=== PATIENT | female | born 1955 | race Caucasian/White ===

== ENCOUNTER 2017-11-28 19:01 | Inpatient (IN) ==
[~2017-11-28 19:01] MED LIST: *HR* Etomidate 20 MG/10 ML AMPUL IVP ONE; *HR* Midazolam HCl 2 MG/2 ML VIAL IV ONE; *HR* Midazolam HCl 5 MG/5 ML VIAL IVP ONE; *HR* Rocuronium Bromide 100 MG/10 ML VIAL IVC ONE
[2017-11-28] MEDS ORDERED: 0.9 % Sodium Chloride 1,000 ML IVC ONE (19:25)
--- NOTE | 2017-11-28 19:27 | Emergency Department Note ---
Overdose - [facility] Narrative Medical decision making narrative: 62-year-old female presenting for drug ingestion. Intubated for obtundation. Unknown if this was accidental or intentional. QTC of 500 treated with magnesium at the recommendations of poison control. Imaging is grossly unremarkable. Labs demonstrate hypokalemia as well as hypocalcemia which was treated here. Case was discussed numerous times with poison control. She has remained hemodynamically stable throughout her ED stay. She is admitted to the intensive care unit under the care of the hospitalist for further management. - Lab Data Lab results reviewed: Yes I reviewed the patient's lab results. Result diagrams: 11/28/17 20:00 11/28/17 20:00 Lab Results 11/28/17 11/28/17 11/28/17 Range/Units 19:43 19:43 19:53 WBC (4.3-11.1) K/mcL RBC (3.82-4.97) M/mcL Hgb (11.5-15.4) g/dL Hct (35.3-44.9) % MCV (83.0-100.0) fL MCH (28.0-33.3) pg MCHC (31.6-35.5) g/dL RDW (11.5-14.5) % Plt Count (140-400) K/mcL MPV (9.4-12.4) fL Immature Gran % (0-4) % Seg Neutrophils % % Lymphocytes % % Monocytes % % Eosinophils % % Basophils % % Neutrophils # (1.6-8.9) K/mcL Lymphocytes # (0.6-4.6) K/mcL Monocytes # (0.0-1.3) K/mcL Eosinophils # (0.0-0.6) K/mcL Basophils # (0.0-0.2) K/mcL PT (9.4-12.1) Seconds INR APTT (26.0-36.0) Seconds Sample Site L Radial ABG pH 7.42 (7.32-7.45) pH Units ABG pCO2 49 H (35-45) mmHg ABG pO2 107 H (85-104) mmHg ABG HCO3 32 H (21-27) mEq/L ABG Total CO2 33 H (20-26) mEq/L ABG O2 Saturation 98 (95-98) % ABG Base Excess 6 H (-2 to 3) mEq/L Betito Test Positive Respiration Rate 14 O2 Delivery Device Adult Vent Blood Gas Modality ASSIST CONTROL Inspired O2 60.0 (1-15=lpm [id number]=%) Tidal Volume 400 cc PEEP 5 cm H2O Sodium (136-145) mEq/L Potassium (3.5-5.1) mEq/L Chloride (98-107) mEq/L Carbon Dioxide (23-29) mEq/L BUN (8-23) mg/dL Creatinine (0.60-1.20) mg/dL Est GFR ( Amer) (> 60) Est GFR (Non-Af Amer) (> 60) BUN/Creatinine Ratio (6-26) Glucose (70-105) mg/dL Calculated Osmolality (280-300) Calcium (8.6-10.3) mg/dL Venous Ioniz Calcium (1.15-1.35) mmol/L Magnesium (1.6-2.6) mg/dL Total Bilirubin (0.3-1.0) mg/dL Direct Bilirubin (0.0-0.2) mg/dL Indirect Bilirubin (0.0-1.2) mg/dL AST (13-39) Units/L ALT (7-52) Units/L Alkaline Phosphatase (34-104) Units/L Ammonia (16-53) mcmol/L Creatine Kinase (30-223) Units/L Troponin I (< 0.04) ng/mL Serum Total Protein (6.4-8.9) g/dL Albumin (3.5-5.7) g/dL Globulin (2.4-3.5) g/dL Albumin/Globulin Ratio (1.1-2.2) TSH (0.340-5.600) mcIU/mL Urine Color Yellow (Yellow) Urine Clarity Clear (Clear) Urine pH 6.5 (5.0-8.0) pH Units Ur Specific [place] 1.007 L (1.010-1.025) Urine Protein Negative (Neg-Trace) mg/dL Urine Glucose (UA) Normal (Normal) mg/dL Urine Ketones Negative (Negative) mg/dL Urine Blood Negative (Negative) Urine Nitrite Negative (Negative) Urine Bilirubin Negative (Negative) Urine Urobilinogen Normal (Normal) mg/dL Ur Leukocyte Esterase Moderate H (Negative) Urine Microscopic RBC 0-3 (0-3) per hpf Urine Microscopic WBC 5-15 H (0-3) per hpf Ur Squamous Epith Cells Moderate H (None-Few) per lpf Urine Bacteria None Seen (None-Few) per hpf Hyaline Casts None Seen (None-Few) per lpf Ur Culture Indicated? YES A (NO) Salicylates (15.0-30.0) mg/dL Urine Opiates Screen Negative (Rsmkpg=655) ng/mL Acetaminophen (10-20) mcg/mL Ur Barbiturates Screen Positive H (Dwkbbq=644) ng/mL Ur Phencyclidine Scrn Negative (Cutoff=25) ng/mL Ur Amphetamines Screen Negative (Mfcmro=4992) ng/mL U Benzodiazepines Scrn Negative (Yaiitq=474) ng/mL Urine Cocaine Screen Negative (Cutoff= 300) ng/mL U Marijuana (THC) Screen Positive H (Cutoff = 50) ng/mL Ur Drug Screen Interp See Below Ethyl Alcohol (Less than 10) mg/dL 11/28/17 11/28/17 11/28/17 Range/Units 20:00 20:00 20:00 WBC 8.0 (4.3-11.1) K/mcL RBC 3.03 L (3.82-4.97) M/mcL Hgb 10.4 L (11.5-15.4) g/dL Hct 30.4 L (35.3-44.9) % MCV 100.3 H (83.0-100.0) fL MCH 34.3 H (28.0-33.3) pg MCHC 34.2 (31.6-35.5) g/dL RDW 13.7 (11.5-14.5) % Plt Count 262 (140-400) K/mcL MPV 10.0 (9.4-12.4) fL Immature Gran % 0.8 (0-4) % Seg Neutrophils % 69.6 % Lymphocytes % 20.5 % Monocytes % 7.9 % Eosinophils % 0.4 % Basophils % 0.8 % Neutrophils # 5.6 (1.6-8.9) K/mcL Lymphocytes # 1.6 (0.6-4.6) K/mcL Monocytes # 0.6 (0.0-1.3) K/mcL Eosinophils # 0.0 (0.0-0.6) K/mcL Basophils # 0.1 (0.0-0.2) K/mcL PT 11.5 (9.4-12.1) Seconds INR 1.0 APTT 23.8 L (26.0-36.0) Seconds Sample Site ABG pH (7.32-7.45) pH Units ABG pCO2 (35-45) mmHg ABG pO2 (85-104) mmHg ABG HCO3 (21-27) mEq/L ABG Total CO2 (20-26) mEq/L ABG O2 Saturation (95-98) % ABG Base Excess (-2 to 3) mEq/L Betito Test Respiration Rate O2 Delivery Device Blood Gas Modality Inspired O2 (1-15=lpm [id number]=%) Tidal Volume cc PEEP cm H2O Sodium 135 L (136-145) mEq/L Potassium 2.3 L* (3.5-5.1) mEq/L Chloride 96 L (98-107) mEq/L Carbon Dioxide 30 H (23-29) mEq/L BUN 15 (8-23) mg/dL Creatinine 1.63 H (0.60-1.20) mg/dL Est GFR ( Amer) 39 L (> 60) Est GFR (Non-Af Amer) 32 L (> 60) BUN/Creatinine Ratio 9 (6-26) Glucose 146 H (70-105) mg/dL Calculated Osmolality 283 (280-300) Calcium 8.3 L (8.6-10.3) mg/dL Venous Ioniz Calcium (1.15-1.35) mmol/L Magnesium 2.0 (1.6-2.6) mg/dL Total Bilirubin 0.4 (0.3-1.0) mg/dL Direct Bilirubin 0.1 (0.0-0.2) mg/dL Indirect Bilirubin 0.3 (0.0-1.2) mg/dL AST 15 (13-39) Units/L ALT 8 (7-52) Units/L Alkaline Phosphatase 151 H (34-104) Units/L Ammonia (16-53) mcmol/L Creatine Kinase 190 (30-223) Units/L Troponin I (< 0.04) ng/mL Serum Total Protein 6.9 (6.4-8.9) g/dL Albumin 4.0 (3.5-5.7) g/dL Globulin 2.9 (2.4-3.5) g/dL Albumin/Globulin Ratio 1.4 (1.1-2.2) TSH (0.340-5.600) mcIU/mL Urine Color (Yellow) Urine Clarity (Clear) Urine pH (5.0-8.0) pH Units Ur Specific [place] (1.010-1.025) Urine Protein (Neg-Trace) mg/dL Urine Glucose (UA) (Normal) mg/dL Urine Ketones (Negative) mg/dL Urine Blood (Negative) Urine Nitrite (Negative) Urine Bilirubin (Negative) Urine Urobilinogen (Normal) mg/dL Ur Leukocyte Esterase (Negative) Urine Microscopic RBC (0-3) per hpf Urine Microscopic WBC (0-3) per hpf Ur Squamous Epith Cells (None-Few) per lpf Urine Bacteria (None-Few) per hpf Hyaline Casts (None-Few) per lpf Ur Culture Indicated? (NO) Salicylates < 2.5 L (15.0-30.0) mg/dL Urine Opiates Screen (Lolljf=174) ng/mL Acetaminophen < 10 L (10-20) mcg/mL Ur Barbiturates Screen (Wnsjbx=527) ng/mL Ur Phencyclidine Scrn (Cutoff=25) ng/mL Ur Amphetamines Screen (Xbcdia=9180) ng/mL U Benzodiazepines Scrn (Vhjkwd=486) ng/mL Urine Cocaine Screen (Cutoff= 300) ng/mL U Marijuana (THC) Screen (Cutoff = 50) ng/mL Ur Drug Screen Interp Ethyl Alcohol < 10 (Less than 10) mg/dL 11/28/17 11/28/17 11/28/17 Range/Units 20:00 20:00 20:18 WBC (4.3-11.1) K/mcL RBC (3.82-4.97) M/mcL Hgb (11.5-15.4) g/dL Hct (35.3-44.9) % MCV (83.0-100.0) fL MCH (28.0-33.3) pg MCHC (31.6-35.5) g/dL RDW (11.5-14.5) % Plt Count (140-400) K/mcL MPV (9.4-12.4) fL Immature Gran % (0-4) % Seg Neutrophils % % Lymphocytes % % Monocytes % % Eosinophils % % Basophils % % Neutrophils # (1.6-8.9) K/mcL Lymphocytes # (0.6-4.6) K/mcL Monocytes # (0.0-1.3) K/mcL Eosinophils # (0.0-0.6) K/mcL Basophils # (0.0-0.2) K/mcL PT (9.4-12.1) Seconds INR APTT (26.0-36.0) Seconds Sample Site ABG pH (7.32-7.45) pH Units ABG pCO2 (35-45) mmHg ABG pO2 (85-104) mmHg ABG HCO3 (21-27) mEq/L ABG Total CO2 (20-26) mEq/L ABG O2 Saturation (95-98) % ABG Base Excess (-2 to 3) mEq/L Betito Test Respiration Rate O2 Delivery Device Blood Gas Modality Inspired O2 (1-15=lpm hf07-420=%) Tidal Volume cc PEEP cm H2O Sodium (136-145) mEq/L Potassium (3.5-5.1) mEq/L Chloride (98-107) mEq/L Carbon Dioxide (23-29) mEq/L BUN (8-23) mg/dL Creatinine (0.60-1.20) mg/dL Est GFR ( Amer) (> 60) Est GFR (Non-Af Amer) (> 60) BUN/Creatinine Ratio (6-26) Glucose (70-105) mg/dL Calculated Osmolality (280-300) Calcium (8.6-10.3) mg/dL Venous Ioniz Calcium 0.93 L (1.15-1.35) mmol/L Magnesium (1.6-2.6) mg/dL Total Bilirubin (0.3-1.0) mg/dL Direct Bilirubin (0.0-0.2) mg/dL Indirect Bilirubin (0.0-1.2) mg/dL AST (13-39) Units/L ALT (7-52) Units/L Alkaline Phosphatase (34-104) Units/L Ammonia 42 (16-53) mcmol/L Creatine Kinase (30-223) Units/L Troponin I < 0.03 (< 0.04) ng/mL Serum Total Protein (6.4-8.9) g/dL Albumin (3.5-5.7) g/dL Globulin (2.4-3.5) g/dL Albumin/Globulin Ratio (1.1-2.2) TSH 41.608 H (0.340-5.600) mcIU/mL Urine Color (Yellow) Urine Clarity (Clear) Urine pH (5.0-8.0) pH Units Ur Specific [place] (1.010-1.025) Urine Protein (Neg-Trace) mg/dL Urine Glucose (UA) (Normal) mg/dL Urine Ketones (Negative) mg/dL Urine Blood (Negative) Urine Nitrite (Negative) Urine Bilirubin (Negative) Urine Urobilinogen (Normal) mg/dL Ur Leukocyte Esterase (Negative) Urine Microscopic RBC (0-3) per hpf Urine Microscopic WBC (0-3) per hpf Ur Squamous Epith Cells (None-Few) per lpf Urine Bacteria (None-Few) per hpf Hyaline Casts (None-Few) per lpf Ur Culture Indicated? (NO) Salicylates (15.0-30.0) mg/dL Urine Opiates Screen (Cqysku=684) ng/mL Acetaminophen (10-20) mcg/mL Ur Barbiturates Screen (Gjczvc=368) ng/mL Ur Phencyclidine Scrn (Cutoff=25) ng/mL Ur Amphetamines Screen (Kcmqmc=2149) ng/mL U Benzodiazepines Scrn (Vplgou=045) ng/mL Urine Cocaine Screen (Cutoff= 300) ng/mL U Marijuana (THC) Screen (Cutoff = 50) ng/mL Ur Drug Screen Interp Ethyl Alcohol (Less than 10) mg/dL - Radiology Data Radiology results reviewed: Yes I reviewed the patient's radiology results. Chest X-Ray 11/28/17 19:25 IMPRESSION: Calcific atherosclerotic disease aorta. No acute disease. Life support appliances appear appropriately positioned. D/ / Elpidio Hector / Elpidio Hector Interpreting Provider: Elpidio Hector Head CT 11/28/17 19:26 IMPRESSION: No acute intracranial abnormality. White matter hypoattenuation described is typical of microvascular ischemic disease or as sequela of dysmyelinating/demyelinating processes. D/ / Elpidio Hector / Elpidio Hector Interpreting Provider: Elpidio Hector - EKG Data EKG attestation: Yes I reviewed and interpreted this EKG. EKG results narrative: EKG demonstrates sinus rhythm rate 83 bpm. Normal axis. Prolonged QTC of 500. Other intervals normal. No gross ST elevations or depressions. No acute ischemic findings. Overdose HPI - General Chief Complaint: ED Overdose Stated Complaint: OD Time Seen by Provider: 11/28/17 19:23 Source: family, EMS Mode of arrival: EMS Limitations: altered mental status Nursing Notes Reviewed: Yes Vital Signs Reviewed: Yes - History of Present Illness HPI Narrative: 62-year-old female underlying history of migraines, seizures who presents to the ER via EMS due to altered mental status and drug ingestion. History is obtained from family. Reports she was last seen normal at noon. We went into see her this evening they believe she got into the wrong medications. Family is missing 14 100 mg strength lamotrigine tablets. No other pills were found. The patient was brought in obtunded. Unable to obtain any history. 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 Pt Subjective Complaint: other Onset (ago): unknown Timing confirmed by: family member Intent: unknown How Overdose Was Discovered: other (Found by family) Treatments Prior to Arrival: none - Related Data Home Medications Medication Instructions Recorded Confirmed Acetaminophen/Butalbital/Caffe 1 each PO Q4HR PRN 10/14/17 10/14/17 [Fioricet] Amitriptyline [Elavil] 25 mg PO HS 10/14/17 10/14/17 Baclofen [Lioresal] 10 mg PO TID 10/14/17 10/14/17 Citalopram [CeleXA] 40 mg PO DAILY 10/14/17 10/14/17 Clopidogrel [Plavix] 75 mg PO DAILY 10/14/17 10/14/17 Cyclobenzaprine [Flexeril] 10 mg PO TID PRN 10/14/17 10/14/17 Desvenlafaxine Succinate 50 mg PO DAILY 10/14/17 10/14/17 [Desvenlafaxine Succinate ER] Folic Acid 1 mg PO DAILY 10/14/17 10/14/17 HYDROcodone/Acet 7.5/325 mg [[place] 1 tab PO TID 10/14/17 10/14/17 7.5-325 mg] Quetiapine Fumarate [Seroquel] 25 - 50 mg PO HS 10/14/17 10/14/17 Quetiapine Fumarate [Seroquel] 25 mg PO AD PRN 10/14/17 10/14/17 Topiramate [Topamax] 100 mg PO BID 10/14/17 10/14/17 hydroCHLOROthiazide 25 mg PO DAILY 10/14/17 10/14/17 [Hydrochlorothiazide] Previous Rx's Medication Instructions Recorded Levothyroxine [Synthroid] 75 mcg PO DAILY@0630 30 Days #30 10/20/17 tablet Allergies Allergy/AdvReac Type Severity Reaction Status Date / Time sertraline [From Zoloft] AdvReac Hives Verified 11/28/17 19:12 Tetracyclines AdvReac Hives Verified 11/28/17 19:12 Limitations: ROS unobtainable due to patients medical condition Past Medical History - Past Medical History Source: old records reviewed, obtained from family Medical history: Reports: fibromyalgia, migraine, seizures, thyroid disease, syncope Surgical history: Reports: non-contributory Psychiatric history: Reports: depression 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 history: Reports: non-contributory - Social History Smoking Status: Former smoker Smokeless Tobacco Status: Yes (vape) Alcohol use: Reports: none Drug use: Reports: none Physical Exam - General Limitations: altered mental status General appearance: lethargic - Head Head exam: atraumatic, normocephalic, normal inspection - Eye Eye exam: Present: normal appearance, PERRL - ENT ENT exam: normal exam, other (Dried emesis to the face) - Neck Neck exam: Present: normal inspection - Chest Chest inspection: Present: normal inspection, symmetric chest wall rise - Respiratory Respiratory exam: Present: normal lung sounds bilaterally - Cardiovascular Cardiovascular exam: Present: regular rate, normal rhythm, normal heart sounds - Abdominal Exam Abdominal exam: Present: soft, Non-Tender. Absent: tenderness, distention, rigidity - Extremities Exam Extremities exam: Present: normal inspection - Expanded Upper Extremity Exam Shoulder exam: Present: normal inspection Arm exam: Present: normal inspection Elbow exam: Present: normal inspection Forearm/Wrist exam: Present: normal inspection Hand exam: Present: normal inspection - Expanded Lower Extremity Exam Hip/Pelvis exam: Present: normal inspection Upper leg exam: Present: normal inspection Knee exam: Present: normal inspection Lower leg exam: Present: normal inspection Ankle exam: Present: normal inspection Foot/toe exam: Present: normal inspection - Neurological Exam Neurological exam: Present: other (Obtunded. Does not follow commands.) - Expanded Neurological Exam Coma Scale Eye Opening: To Voice Coma Scale Motor Response: Withdraws to Pain Coma Scale Verbal Response: None Coma Scale Total: 8 - Skin Skin exam: Present: warm, dry Course Course Narrative: Patient seen and examined at time of arrival. Intubated for airway securement and obtundation. Plan discussed with poison control. They recommended treatment with magnesium given her prolonged QT interval. Plan for CT imaging of her head, labs, urinalysis, admission. - Reevaluation(s) Reevaluation #1: Potassium found to be 2.3. Patient given 40 mEq oral and IV. Calcium was also replaced IV. - Consultations Consultation #1: I spoke with poison control concerning this patient. Discussed her own medications as well as what is believed to been ingested today. They recommend to treat her QTC with 2 g of magnesium. Vital Signs Temperature 97.7 F 11/28/17 19:15 Pulse Rate 76 11/28/17 19:15 Respiratory Rate 16 11/28/17 19:15 Blood Pressure 149/93 11/28/17 19:15 O2 Sat by Pulse Oximetry 98 11/28/17 19:15 Temperature 97.7 F 11/28/17 20:25 Pulse Rate 67 11/28/17 21:57 Respiratory Rate 16 11/28/17 21:37 Blood Pressure 141/91 11/28/17 21:57 O2 Sat by Pulse Oximetry 100 11/28/17 21:57 Oxygen Delivery Oxygen Delivery Ventilator Disposition Clinical Impression: Hypokalemia, Positive urine drug screen, Hypocalcemia Drug overdose Qualifiers: Encounter type: initial encounter Injury intent: undetermined intent Qualified Code(s): T50.904A - Poisoning by unspecified drugs, medicaments and biological substances, undetermined, initial encounter Altered mental status Qualifiers: Altered mental status type: unspecified Qualified Code(s): R41.82 - Altered mental status, unspecified Disposition: Admitted As Inpatient Condition: Fair Referrals: William De Leon DO [Primary Care Provider] - Forms: ED Satisfaction Letter S.B.A.R. - S.B.A.R. Situation: Demographics, MOA Background: Presenting Complaint, Relevant PMH, Meds, & Allergies Assessment: Course and respsone to treatment, Exam Concerns, Patient/Family Expectation, Pertinant Lab Results Recommendation: Barrier(s) to disposition, Recommendation based on pending studies, treatments, or consults S.B.A.R. Report Given to: Hospitalist
[2017-11-28] MEDS ORDERED: *HR* Rocuronium Bromide 50 MG/5 ML VIAL IVP ONE (19:35)
[2017-11-28] MEDS ORDERED: *HR* Etomidate 20 MG/10 ML AMPUL IVP ONE (19:35)
--- NOTE | 2017-11-28 19:51 | Emergency Department Note ---
Disposition Clinical Impression: Drug overdose Qualifiers: Encounter type: initial encounter Injury intent: undetermined intent Qualified Code(s): T50.904A - Poisoning by unspecified drugs, medicaments and biological substances, undetermined, initial encounter Disposition: Admitted As Inpatient Condition: Critical General Adult HPI - General Chief complaint: ED Overdose Stated complaint: OD Time Seen by Provider: 11/28/17 19:23 Source: family, EMS Limitations: altered mental status - History of Present Illness HPI Narrative: Please see resident history of present illness, physical exam and assessment and plan. This is simply an event note for procedure. Pain Scale: 0 - Related Data Home Medications Medication Instructions Recorded Confirmed RX: Acetaminophen/Butalbital/Caffe 1 each PO Q4HR PRN 10/14/17 10/14/17 [Fioricet] RX: Amitriptyline [Elavil] 25 mg PO HS 10/14/17 10/14/17 RX: Baclofen [Lioresal] 10 mg PO TID 10/14/17 10/14/17 RX: Citalopram [CeleXA] 40 mg PO DAILY 10/14/17 10/14/17 RX: Clopidogrel [Plavix] 75 mg PO DAILY 10/14/17 10/14/17 RX: Cyclobenzaprine [Flexeril] 10 mg PO TID PRN 10/14/17 10/14/17 RX: Desvenlafaxine Succinate 50 mg PO DAILY 10/14/17 10/14/17 [Desvenlafaxine Succinate ER] RX: Folic Acid 1 mg PO DAILY 10/14/17 10/14/17 RX: HYDROcodone/Acet 7.5/325 mg 1 tab PO TID 10/14/17 10/14/17 [[place] 7.5-325 mg] RX: Quetiapine Fumarate [Seroquel] 25 - 50 mg PO HS 10/14/17 10/14/17 RX: Quetiapine Fumarate [Seroquel] 25 mg PO AD PRN 10/14/17 10/14/17 RX: Topiramate [Topamax] 100 mg PO BID 10/14/17 10/14/17 RX: hydroCHLOROthiazide 25 mg PO DAILY 10/14/17 10/14/17 [Hydrochlorothiazide] Previous Rx's Medication Instructions Recorded RX: Levothyroxine [Synthroid] 75 mcg PO DAILY@0630 30 Days #30 10/20/17 tablet Allergies Allergy/AdvReac Type Severity Reaction Status Date / Time sertraline [From Zoloft] AdvReac Hives Verified 11/28/17 19:12 Tetracyclines AdvReac Hives Verified 11/28/17 19:12 Past Medical History - Past Medical History Medical history: Reports: fibromyalgia, migraine, seizures, thyroid disease, syncope Surgical history: Reports: non-contributory Psychiatric history: Reports: depression [employer] history: Reports: non-contributory - Social History Smoking Status: Former smoker Smokeless Tobacco Status: Yes (vape) Alcohol use: Reports: none Drug use: Reports: none Physical Exam - General Limitations: altered mental status General appearance: lethargic Course Vital Signs Temperature 97.7 F 11/28/17 19:15 Pulse Rate 76 11/28/17 19:15 Respiratory Rate 16 11/28/17 19:15 Blood Pressure 149/93 11/28/17 19:15 O2 Sat by Pulse Oximetry 98 11/28/17 19:15 Temperature 97.7 F 11/28/17 19:15 Pulse Rate 79 11/28/17 19:47 Respiratory Rate 16 11/28/17 19:15 Blood Pressure 149/89 11/28/17 19:47 O2 Sat by Pulse Oximetry 100 11/28/17 19:47 Oxygen Delivery Oxygen Delivery Ventilator Procedures - Intubation Time out performed: Yes sedative: Etomidate Mg Given: 20 paralytic: Rocuronium Mg Given: 100 Laryngoscope: Tomas Assist Device Used: fiber optic device ET Tube Size: Oral ET Tube Uncuffed: Yes Tube Secured Depth (cm): 24 Tube Secured Location: lips Tube Placement Confirmation: visualized tube passing through cords, equal breath sounds bilaterally, no breath sounds over epigastrium, confirmation by capnometry Patient Tolerated Procedure: well, no complications Intubation Complications: none
[2017-11-28 19:59] LABS: ABG Base Excess 6 mEq/L (-2 to 3); ABG HCO3 32 mEq/L (21-27); ABG Oxygen Saturation 98 % (95-98); ABG PCO2 49 mmHg (35-45); ABG PH 7.42 pH Units (7.32-7.45); ABG PO2 107 mmHg (85-104); ABG TCO2 33 mEq/L (20-26); Blood Gas Modality ASSIST CONTROL; Blood Gas PEEP 5 cm H2O; Blood Gas Respiration Rate 14; Blood Gas VT 400 cc
[2017-11-28] MEDS ORDERED: 0.9 % Sodium Chloride 1,000 ML IVC SCH (20:00)
--- NOTE | 2017-11-28 20:02 | Emergency Department Note ---
Disposition Clinical Impression: Drug overdose Qualifiers: Encounter type: initial encounter Injury intent: undetermined intent Qualified Code(s): T50.904A - Poisoning by unspecified drugs, medicaments and biological substances, undetermined, initial encounter Disposition: Admitted As Inpatient Referrals: William De Leon DO [Primary Care Provider] - General Adult HPI - General Chief complaint: ED Overdose Stated complaint: OD Time Seen by Provider: 11/28/17 19:23 Source: family, EMS Mode of arrival: EMS Limitations: altered mental status - History of Present Illness Pain Scale: 0 - Related Data Home Medications Medication Instructions Recorded Confirmed Acetaminophen/Butalbital/Caffe 1 each PO Q4HR PRN 10/14/17 10/14/17 [Fioricet] Amitriptyline [Elavil] 25 mg PO HS 10/14/17 10/14/17 Baclofen [Lioresal] 10 mg PO TID 10/14/17 10/14/17 Citalopram [CeleXA] 40 mg PO DAILY 10/14/17 10/14/17 Clopidogrel [Plavix] 75 mg PO DAILY 10/14/17 10/14/17 Cyclobenzaprine [Flexeril] 10 mg PO TID PRN 10/14/17 10/14/17 Desvenlafaxine Succinate 50 mg PO DAILY 10/14/17 10/14/17 [Desvenlafaxine Succinate ER] Folic Acid 1 mg PO DAILY 10/14/17 10/14/17 HYDROcodone/Acet 7.5/325 mg [[place] 1 tab PO TID 10/14/17 10/14/17 7.5-325 mg] Quetiapine Fumarate [Seroquel] 25 - 50 mg PO HS 10/14/17 10/14/17 Quetiapine Fumarate [Seroquel] 25 mg PO AD PRN 10/14/17 10/14/17 Topiramate [Topamax] 100 mg PO BID 10/14/17 10/14/17 hydroCHLOROthiazide 25 mg PO DAILY 10/14/17 10/14/17 [Hydrochlorothiazide] Previous Rx's Medication Instructions Recorded Levothyroxine [Synthroid] 75 mcg PO DAILY@0630 30 Days #30 10/20/17 tablet Allergies Allergy/AdvReac Type Severity Reaction Status Date / Time sertraline [From Zoloft] AdvReac Hives Verified 11/28/17 19:12 Tetracyclines AdvReac Hives Verified 11/28/17 19:12 Past Medical History - Past Medical History Medical history: Reports: fibromyalgia, migraine, seizures, thyroid disease, syncope Surgical history: Reports: non-contributory Psychiatric history: Reports: depression [employer] history: Reports: non-contributory - Social History Smoking Status: Former smoker Smokeless Tobacco Status: Yes (vape) Alcohol use: Reports: none Drug use: Reports: none Physical Exam - General Limitations: altered mental status General appearance: lethargic Course Vital Signs Temperature 97.7 F 11/28/17 19:15 Pulse Rate 76 11/28/17 19:15 Respiratory Rate 16 11/28/17 19:15 Blood Pressure 149/93 11/28/17 19:15 O2 Sat by Pulse Oximetry 98 11/28/17 19:15 Temperature 97.7 F 11/28/17 19:15 Pulse Rate 79 11/28/17 19:47 Respiratory Rate 16 11/28/17 19:15 Blood Pressure 149/89 11/28/17 19:47 O2 Sat by Pulse Oximetry 100 11/28/17 19:47 Oxygen Delivery Oxygen Delivery Ventilator Attestation Statement - Attestation Attestation: I examined this patient and my medical decision-making was reviewed with the Resident Physician. I agree with the documented findings, disposition and treatment plan as described except to the extent set forth below. 62 year old female arrives via EMs from her home per her daughter for potentional oversdose with lamigital 14-100mg pills. 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 Secondary to airway protection and a GCS < 8 we will intubate and have consulted with posioin control as she hasa QTc of 500 and they have reocmmended 2gram of magneium. PAtient will be admitted to ICU. Las tknown well was 1200 (noon)
[2017-11-28 20:07] LABS: Bilirubin,Urine Negative (Negative); Blood,Urine Negative (Negative); Clarity,Urine Clear (Clear); Color,Urine Yellow (Yellow); Glucose,Urine (UA) Normal (Normal); Ketones,Urine Negative (Negative); Leukocyte Esterase,Urine Moderate (Negative); Nitrite,Urine Negative (Negative); PH,Urine 6.5 pH Units (5.0-8.0); Protein,Urine Negative (Neg-Trace); Specific Gravity,Urine 1.007 (1.010-1.025); Urobilinogen,Urine Normal (Normal)
[2017-11-28 20:09] LABS: Bacteria,Urine None Seen per hpf (None-Few); Hyaline Casts,Urine None Seen per lpf (None-Few); RBC,Urine 0-3 per hpf (0-3); Squamous Epithelial Cell,Urine Moderate per lpf (None-Few)
[2017-11-28 20:15] LABS: Basophils # 0.1 K/mcL (0.0-0.2); Basophils % 0.8 %; Eosinophils % 0.4 %; Hematocrit 30.4 % (35.3-44.9); Hemoglobin 10.4 g/dL (11.5-15.4); Immature Granulocytes % 0.8 % (0-4); Lymphocytes # 1.6 K/mcL (0.6-4.6); Lymphocytes % 20.5 %; Mean Corpuscular HGB Conc 34.2 g/dL (31.6-35.5); Mean Corpuscular Hemoglobin 34.3 pg (28.0-33.3); Mean Corpuscular Volume 100.3 fL (83.0-100.0); Monocytes # 0.6 K/mcL (0.0-1.3); Monocytes % 7.9 %; Neutrophils # 5.6 K/mcL (1.6-8.9); Platelet Count 262 K/mcL (140-400); Red Blood Count 3.03 M/mcL (3.82-4.97); Red Cell Distribution Width 13.7 % (11.5-14.5); Segmented Neutrophils % 69.6 %
[2017-11-28] MEDS ORDERED: *HR* Midazolam HCl 2 MG/2 ML VIAL IVP ONE ×2 (20:17→21:22)
[2017-11-28 20:21] LABS: VBG Ionized Calcium 0.93 mmol/L (1.15-1.35)
[2017-11-28 20:23] LABS: Prothrombin Time 11.5 Seconds (9.4-12.1)
[2017-11-28 20:24] LABS: Amphetamine Screen,Urine Negative ng/mL (Cutoff=1000); Barbiturate Screen,Urine Positive ng/mL (Cutoff=200); Benzodiazepines Screen,Urine Negative ng/mL (Cutoff=200); Cannabinoid Screen,Urine Positive ng/mL (Cutoff = 50); Cocaine Screen,Urine Negative ng/mL (Cutoff= 300); Opiate Screen,Urine Negative ng/mL (Cutoff=300); Phencyclidine Screen,Urine Negative ng/mL (Cutoff=25)
[2017-11-28 20:25] LABS: Activated Partial Thrombo Time 23.8 Seconds (26.0-36.0)
[2017-11-28 20:36] LABS: Acetaminophen < 10 mcg/mL (10-20); Alanine Aminotransferase 8 Units/L (7-52); Albumin/Globulin Ratio 1.4 (1.1-2.2); Alkaline Phosphatase 151 Units/L (34-104); Aspartate Amino Transferase 15 Units/L (13-39); BUN/Creatinine Ratio 9 (6-26); Bilirubin,Direct 0.1 mg/dL (0.0-0.2); Bilirubin,Indirect 0.3 mg/dL (0.0-1.2); Bilirubin,Total 0.4 mg/dL (0.3-1.0); Blood Urea Nitrogen 15 mg/dL (8-23); Calcium 8.3 mg/dL (8.6-10.3); Carbon Dioxide 30 mEq/L (23-29); Chloride 96 mEq/L (98-107); Creatine Kinase 190 Units/L (30-223); Ethanol < 10 mg/dL (Less than 10); Globulin 2.9 g/dL (2.4-3.5); Glucose 146 mg/dL (70-105); Osmolality,Calculated 283 (280-300); Potassium 2.3 mEq/L (3.5-5.1); Salicylate < 2.5 mg/dL (15.0-30.0); Sodium 135 mEq/L (136-145); Total Protein 6.9 g/dL (6.4-8.9); eGFR For Non-African Americans 32 (> 60)
[2017-11-28] MEDS ORDERED: Potassium Chloride 40 MEQ, Lidocaine 1% 2 ML in D5% in Water 500 ML IVPB ONE (20:36)
[2017-11-28 20:41] LABS: Troponin I < 0.03 ng/mL (< 0.04)
[2017-11-28 20:54] LABS: Thyroid Stimulating Hormone 41.608 mcIU/mL (0.340-5.600)
[2017-11-28] MEDS ORDERED: Naloxone 0.4 MG/ML INJ IVP PRN (22:23)
[2017-11-28] MEDS ORDERED: Artificial Tears SOLN 15 ML BOTTLE BOTH EYES PRN (22:25)
[2017-11-28] MEDS ORDERED: Potassium Chloride 40 MEQ/200 ML BAG IVPB PRN (22:37)
--- NOTE | 2017-11-28 22:54 | Internal Med History&Physical ---
<Pan May - Last Filed: 11/28/17 22:49> Date of Encounter: 11/28/17 Time of Encounter: 22:49 Internal Medicine - H&P: HPI Chief complaint: Altered mental status Admitted From: Home Plans for Post Hospital Care: Home History of present illness: Ms. Hitchcock is a 62 year old female presented via EMS after she was found to be unconscious by her [id number]. Family was called via phone to obtain history of present illness. [id number] stated that she was about to take her Lamictal medication at 5 PM when she noticed her prescription bottle was empty. Patient took 14 tablets of 100 mg strength lamotrigine. She then went to find her [id number] who was seen to be unconscious and vomiting. Daughter -in-law called 911 and patient was brought to [facility] emergency room. Daughter reports patient has history of global amnesia which she reports patient will have mutism, and difficulty functioning and which is likely why she took the pills. Daughter also reports patient was let go by her PCP recently and also was cut off from her diazepam. Daughter reports she does not believe patient was suicidal. Also patient's other prescription medications were checked by family and therefore nothing else is missing. Patient was emergently intubated patient. During intubation there is vomiting noted in the trachea. Patient's QTC of 500 and was treated with magnesium which was recommended by poison control. Patient was also hypokalemic hypocalcemic which were replaced by emergency department. Past Med Surg Social Fam HX - Past Medical History Medical history: fibromyalgia, migraine, seizures, thyroid disease, syncope Additional medical history: POTS, Psychiatric history: depression - Past Surgical History Surgical History: non-contributory Additional surgical history: right wrist - Social History Smoking Status: Former smoker Smokeless Tobacco Status: Yes (vape) Alcohol use: none Drug use: none Internal Medicine - H&P: Meds Acetaminophen/Butalbital/Caffe [Fioricet] 1 each PO Q4HR PRN 10/14/17 [History] Amitriptyline [Elavil] 25 mg PO HS 10/14/17 [History] Baclofen [Lioresal] 10 mg PO TID 10/14/17 [History] Citalopram [CeleXA] 40 mg PO DAILY 10/14/17 [History] Clopidogrel [Plavix] 75 mg PO DAILY 10/14/17 [History] Cyclobenzaprine [Flexeril] 10 mg PO TID PRN 10/14/17 [History] Desvenlafaxine Succinate [Desvenlafaxine Succinate ER] 50 mg PO DAILY 10/14/17 [ History] Folic Acid 1 mg PO DAILY 10/14/17 [History] HYDROcodone/Acet 7.5/325 mg [Rowe 7.5-325 mg] 1 tab PO TID 10/14/17 [History] Quetiapine Fumarate [Seroquel] 25 - 50 mg PO HS 10/14/17 [History] Quetiapine Fumarate [Seroquel] 25 mg PO AD PRN 10/14/17 [History] Topiramate [Topamax] 100 mg PO BID 10/14/17 [History] hydroCHLOROthiazide [Hydrochlorothiazide] 25 mg PO DAILY 10/14/17 [History] Levothyroxine [Synthroid] 75 mcg PO DAILY@0630 30 Days #30 tablet 10/20/17 [Rx] 3 Allergy/AdvReac Type Severity Reaction Status Date / Time sertraline [From Zoloft] AdvReac Hives Verified 11/28/17 19:12 Tetracyclines AdvReac Hives Verified 11/28/17 19:12 ROS unobtainable: due to endotracheal tube, due to mental status All Systems PM: A 10-system review of systems was performed and is negative for pertinent findings except as documented above in the HPI. - Constitutional Vitals: Temp Pulse Resp BP Pulse Ox 97.7 F 69 16 129/80 10 11/28/17 20:25 11/28/17 22:18 11/28/17 21:37 11/28/17 22:18 11/28/17 22:18 Exam: General: Intubated, sedated HEENT: Head atraumatic, normocephalic, absent neck mass, absent lymphadenopathy , Heart: Regular rate and rhythm with no murmur Lungs: Coarse breath sounds bilaterally Abdomen: Soft nontender, nondistended positive bowel sounds Skin: warm and dry, absent rash Extremities: 1+ pedal edema bilaterally Neuro: Intubated sedated Vascular: Pedal and radial pulses 2 out of 4 Internal Med - H&P Results - Labs CBC & Chem 7: 11/28/17 20:00 11/28/17 20:00 Labs: Short CBC 11/28/17 Range/Units 20:00 WBC 8.0 (4.3-11.1) K/mcL Hgb 10.4 L (11.5-15.4) g/dL Hct 30.4 L (35.3-44.9) % Plt Count 262 (140-400) K/mcL Neutrophils # 5.6 (1.6-8.9) K/mcL BMP 11/28/17 20:00 Sodium 135 L Potassium 2.3 L* Chloride 96 L Carbon Dioxide 30 H BUN 15 Creatinine 1.63 H Glucose 146 H Calcium 8.3 L Cardiac Enzymes 11/28/17 Range/Units 20:00 Troponin I < 0.03 (< 0.04) ng/mL Liver Function 11/28/17 Range/Units 20:00 Total Bilirubin 0.4 (0.3-1.0) mg/dL Direct Bilirubin 0.1 (0.0-0.2) mg/dL AST 15 (13-39) Units/L ALT 8 (7-52) Units/L Alkaline Phosphatase 151 H (34-104) Units/L Albumin 4.0 (3.5-5.7) g/dL Urine 11/28/17 Range/Units 19:43 Urine Color Yellow (Yellow) Urine Clarity Clear (Clear) Urine pH 6.5 (5.0-8.0) pH Units Ur Specific [place] 1.007 L (1.010-1.025) Urine Protein Negative (Neg-Trace) mg/dL Urine Glucose (UA) Normal (Normal) mg/dL - ABG Interpretation ABG results: 11/28/17 19:53 ABG pH 7.42 ABG pCO2 49 H ABG pO2 107 H ABG HCO3 32 H ABG Total CO2 33 H ABG O2 Saturation 98 ABG Base Excess 6 H - Impressions ITS Impressions Chest X-Ray 11/28/17 19:25 IMPRESSION: Calcific atherosclerotic disease aorta. No acute disease. Life support appliances appear appropriately positioned. D/ / Elpidio Hector / Elpidio Hector Interpreting Provider: Elpidio Hector Head CT 11/28/17 19:26 IMPRESSION: No acute intracranial abnormality. White matter hypoattenuation described is typical of microvascular ischemic disease or as sequela of dysmyelinating/demyelinating processes. D/ / Elpidio Hector / Elpidio Hector Interpreting Provider: Elpidio Hector - Assessment and plan (1) Drug overdose Current Visit: Yes Status: Acute Assessment and plan: 62-year-old female was found unconscious by her daughter in law and taken 14 pills of 100 mg lamotrigine. Patient presented unconscious, and was vomiting. Patient's QT was noted to be 500 otherwise EKG was sinus rhythm with no ST-T wave changes. Patient was given magnesium as per poison control. EGD also gave patient calcium gluconate. Plan: We will repeat EKG every 2 hours, check CPK, ABG. Cardiac telemetry. Qualifiers: Encounter type: initial encounter Injury intent: undetermined intent Qualified Code(s): T50.904A - Poisoning by unspecified drugs, medicaments and biological substances, undetermined, initial encounter (2) Hypokalemia Current Visit: Yes Status: Acute Assessment and plan: Patient presented with a potassium of 2.3 Patient has been given 80 mEq Recheck potassium. Patient on electrolyte protocol. (3) Elevated TSH Current Visit: Yes Status: Acute Assessment and plan: Patient has a history of hypothyroidism TSH is 41 She takes 75 g of levothyroxine We will start patient on 112 mg of thyroxine. Follow-up with PCP for further management (4) Hypocalcemia Current Visit: Yes Status: Acute Assessment and plan: Patient sinus calcium was 0.93 Patient is on electrolyte protocol. (5) QT prolongation Current Visit: Yes Status: Acute Assessment and plan: Secondary to Lamictal overdose Hold home medications Plan as above. - Time Spent With Patient Total time spent is greater than 50% in coordination of care (as documented) at patient's floor/unit and/or counseling patient: <Jo Ann Sanchez - Last Filed: 11/28/17 23:09> Date of Encounter: 11/28/17 Internal Medicine - H&P: HPI History of present illness: Ms. Hitchcock is a 62 year old female All Systems PM: A 10-system review of systems was performed and is negative for pertinent findings except as documented above in the HPI. - Constitutional Vitals: Temp Pulse Resp BP Pulse Ox 97.7 F 69 16 129/80 10 11/28/17 20:25 11/28/17 22:18 11/28/17 21:37 11/28/17 22:18 11/28/17 22:18 Internal Med - H&P Results - Labs CBC & Chem 7: 11/28/17 20:00 11/28/17 20:00 Labs: Short CBC 11/28/17 Range/Units 20:00 WBC 8.0 (4.3-11.1) K/mcL Hgb 10.4 L (11.5-15.4) g/dL Hct 30.4 L (35.3-44.9) % Plt Count 262 (140-400) K/mcL Neutrophils # 5.6 (1.6-8.9) K/mcL BMP 11/28/17 20:00 Sodium 135 L Potassium 2.3 L* Chloride 96 L Carbon Dioxide 30 H BUN 15 Creatinine 1.63 H Glucose 146 H Calcium 8.3 L Cardiac Enzymes 11/28/17 Range/Units 20:00 Troponin I < 0.03 (< 0.04) ng/mL Liver Function 11/28/17 Range/Units 20:00 Total Bilirubin 0.4 (0.3-1.0) mg/dL Direct Bilirubin 0.1 (0.0-0.2) mg/dL AST 15 (13-39) Units/L ALT 8 (7-52) Units/L Alkaline Phosphatase 151 H (34-104) Units/L Albumin 4.0 (3.5-5.7) g/dL Urine 11/28/17 Range/Units 19:43 Urine Color Yellow (Yellow) Urine Clarity Clear (Clear) Urine pH 6.5 (5.0-8.0) pH Units Ur Specific [place] 1.007 L (1.010-1.025) Urine Protein Negative (Neg-Trace) mg/dL Urine Glucose (UA) Normal (Normal) mg/dL - ABG Interpretation ABG results: 11/28/17 19:53 ABG pH 7.42 ABG pCO2 49 H ABG pO2 107 H ABG HCO3 32 H ABG Total CO2 33 H ABG O2 Saturation 98 ABG Base Excess 6 H - Impressions ITS Impressions Chest X-Ray 11/28/17 19:25 IMPRESSION: Calcific atherosclerotic disease aorta. No acute disease. Life support appliances appear appropriately positioned. D/ / Elpidio Hector / Elpidio Hector Interpreting Provider: Elpidio Hector Head CT 11/28/17 19:26 IMPRESSION: No acute intracranial abnormality. White matter hypoattenuation described is typical of microvascular ischemic disease or as sequela of dysmyelinating/demyelinating processes. D/ / Elpidio Hector / Elpidio Hector Interpreting Provider: Elpidio Hector - Assessment and plan (1) Hypokalemia Current Visit: Yes Status: Acute (2) Elevated TSH Current Visit: Yes Status: Acute (3) Drug overdose Current Visit: Yes Status: Acute Qualifiers: Encounter type: initial encounter Injury intent: undetermined intent Qualified Code(s): T50.904A - Poisoning by unspecified drugs, medicaments and biological substances, undetermined, initial encounter (4) Hypocalcemia Current Visit: Yes Status: Acute (5) QT prolongation Current Visit: Yes Status: Acute - Time Spent With Patient Total time spent is greater than 50% in coordination of care (as documented) at patient's floor/unit and/or counseling patient: - Attending Attestation Mariama Hitchcock is a 62 year old woman with a history of hypothyroidism, seizure disorder, depression, fibromyalgia and global amnesia per family characterized by moments of mutism and forgetfulness brought in due to AMS after drug intoxication. As per family it is believed she got into the wrong medications while she was left alone and noted that 14 1000mg lamotrigine tablets from someone elses pill bottle were missing. She was noted vomiting profusely. She was obtunded on arrival here intubated on arrival to the ER for airway protection due to profuse vomiting. Poison control was contacted with the recommendation of supplementing magnesium given the prolonged QTc. At this time the patient is hemodynamically stable. Physical exam is remarkable for elderly woman sedated to RASS-2, adequate air entry into both lung [place] with some rhonchi, soft abdomen, no significant peripheral edema. Will treat acute intoxication/poisoning by antiepileptic agent and severe hypokalemia. IVF resuscitation. Supplement K as needed. Maintain Mg >2. Ensure pH stays around 7.4 and will use NaHCO3 if necessary. HOB elevation. Stress ulcer prophylaxis. Oral care. Check CPK. Continuous telemetry. EKG q2-4hrs. Increase levothyroxine dose for severe metabolically hypothyroid state. OG tube to suction. DVT prophylais with heparin subq. Propofol for sedation and daily weaning trial.
[2017-11-29] MEDS ORDERED: Piperacillin/Tazobactam 3.375 GM in 0.9 % Sodium Chloride Mini Bag 100 ML IVPB SCH
[2017-11-29] MEDS ORDERED: *HR* Heparin 5,000 UNIT/ML VIAL SQ SCH
[2017-11-29] MEDS: Artificial Tears SOLN 15 ML BOTTLE BOTH EYES SCH ×7 (00:42→23:46)
[2017-11-29] MEDS ORDERED: *HR* Midazolam HCl 2 MG/2 ML VIAL IVP ONE ×2 (01:12)
[2017-11-29] MEDS ORDERED: FentaNYL (PF) 1,000 MCG in 0.9 % Sodium Chloride 80 ML IVC SCH (01:15)
[2017-11-29 01:28] LABS: ABG Base Excess 5 mEq/L (-2 to 3); ABG HCO3 30 mEq/L (21-27); ABG Oxygen Saturation 95 % (95-98); ABG PCO2 45 mmHg (35-45); ABG PH 7.43 pH Units (7.32-7.45); ABG PO2 72 mmHg (85-104); ABG TCO2 31 mEq/L (20-26); Blood Gas Modality ASSIST CONTROL; Blood Gas PEEP 5 cm H2O; Blood Gas Respiration Rate 14; Blood Gas VT 400 cc
[2017-11-29 01:53] LABS: Basophils # 0.1 K/mcL (0.0-0.2); Basophils % 0.4 %; Eosinophils % 0.1 %; Hematocrit 28.2 % (35.3-44.9); Hemoglobin 9.6 g/dL (11.5-15.4); Immature Granulocytes % 0.5 % (0-4); Lymphocytes # 1.5 K/mcL (0.6-4.6); Lymphocytes % 11.1 %; Mean Corpuscular Hemoglobin 33.8 pg (28.0-33.3); Mean Corpuscular Volume 99.3 fL (83.0-100.0); Mean Platelet Volume 10.1 fL (9.4-12.4); Monocytes % 7.4 %; Neutrophils # 11.2 K/mcL (1.6-8.9); Platelet Count 260 K/mcL (140-400); Red Blood Count 2.84 M/mcL (3.82-4.97); Red Cell Distribution Width 13.7 % (11.5-14.5); Segmented Neutrophils % 80.5 %
[2017-11-29 02:09] LABS: Albumin 3.8 g/dL (3.5-5.7); Albumin/Globulin Ratio 1.4 (1.1-2.2); Bilirubin,Indirect 0.4 mg/dL (0.0-1.2); Bilirubin,Total 0.4 mg/dL (0.3-1.0); Calcium 8.6 mg/dL (8.6-10.3); Globulin 2.7 g/dL (2.4-3.5); Magnesium 2.6 mg/dL (1.6-2.6); Phosphorous 2.2 mg/dL (2.7-4.5); Potassium 2.8 mEq/L (3.5-5.1); Total Protein 6.5 g/dL (6.4-8.9)
[2017-11-29] MEDS: Potassium Chloride Elixir 20 MEQ/15 ML UDC PO PRN ×2 (04:55→07:58)
[2017-11-29 05:40] LABS: Calcium 8.7 mg/dL (8.6-10.3); Potassium 2.6 mEq/L (3.5-5.1)
[2017-11-29] MEDS: Famotidine 20 MG/2 ML VIAL IVP SCH ×2 (05:44→17:15)
[2017-11-29] MEDS: Docusate Oral Soln 100 MG/10 ML UDC GTUBE SCH ×2 (07:58→20:20)
[2017-11-29] MEDS: Chlorhexidine Rinse 15 ML MOUTHWASH MM SCH ×2 (07:59→20:19)
[2017-11-29] MEDS: *HR* Heparin 5,000 UNIT/ML VIAL SQ SCH ×3 (08:03→23:46)
--- NOTE | 2017-11-29 08:35 | Pulmonology Consult Note ---
<Petrona Salvador - Last Filed: 11/29/17 11:20> Date of Encounter: 11/29/17 Time of Encounter: 08:35 Assessment and Plan (1) Altered mental status Current Visit: Yes Status: Acute Pt presented to the ED obtunded and was intubated for inability to protect airway and maintain saturation. She was extubated 11/29/17 AM and is mentating appropriately, A&O x 3 - self, place, time. There is either some confusion as to the events that led to her admission or purposeful falsification. Qualifiers: Altered mental status type: unspecified Qualified Code(s): R41.82 - Altered mental status, unspecified (2) Drug overdose Current Visit: Yes Status: Acute Pt reportedly took 1400mg Lamictal either because she was confused or because she did not have any of her own medication. She was found to have QTC of 500 and was given Mg in the ED. EKG was repeated and QTC was found to be 432. Recommend Psych consult to assess. Qualifiers: Encounter type: initial encounter Injury intent: undetermined intent Qualified Code(s): T50.904A - Poisoning by unspecified drugs, medicaments and biological substances, undetermined, initial encounter (3) Elevated TSH Current Visit: Yes Status: Acute Pt had TSH of 41.608 and Free T4 <0.25ng/dl on 10/14/17. Recommend Free T4 level and outpatient management for optimizing of synthroid therapy. (4) Hypocalcemia Current Visit: Yes Status: Acute Ca2+ was found to be 8.3 on admission, which is mild hypocalcemia, but is now WNL. (5) Hypokalemia Current Visit: Yes Status: Acute Pt was found to be hypokalemic on admission at 2.3 and was started on potassium repletion. Potassium continues to improve. Continue to monitor. (6) Positive urine drug screen Current Visit: Yes Status: Acute UDS positive for barbiturates and THC. Pt has a hx of abuse. Continue to monitor. (7) QT prolongation Current Visit: Yes Status: Acute QT was elevated in ED on presentation, QT on EKG at 1144 on 11/29/17 was 411. (8) Aspiration pneumonia Current Visit: Yes Status: Suspected Due to OD and pt being found down with emesis around her mouth as well as continued emesis during transport to the hospital, there is concern for potential development of aspiration PNA. Pt is currently being covered with Unasyn 1500mg Q6. She is normothermic, with clear breath sounds bilaterally, without difficulty breathing. There is some opacification on 11/29/17 0308 CXR in the area of the right hilum. Continue coverage with unasyn and monitor CXR. Qualifiers: Aspiration pneumonia type: due to vomit Laterality: unspecified laterality Lung location: unspecified part of lung Qualified Code(s): J69.0 - Pneumonitis due to inhalation of food and vomit (9) CKD (chronic kidney disease) Current Visit: No Status: Acute Cr at admission was 1.63 which is trending down to her baseline. Her average creatinine is between 1.29-1.95 based upon labs dating back to 2013. Continue to monitor, renally dose medications, and gentle hydration as necessary. Qualifiers: Chronic kidney disease stage: stage 3 (moderate) Qualified Code(s): N18.3 - Chronic kidney disease, stage 3 (moderate) (10) DVT prophylaxis Current Visit: No Status: Acute Heparin 5k units Q8 (11) H/O syncope Current Visit: No Status: Acute Fall prevention, up with assist (12) Polysubstance abuse Current Visit: No Status: Acute Psych eval (13) Syncope Current Visit: No Status: Acute Up with assist, fall precautions Qualifiers: Syncope type: unspecified Qualified Code(s): R55 - Syncope and collapse (14) Weakness Current Visit: No Status: Acute Up with assist, fall precautions (15) Seizure Current Visit: No Status: Suspected Restart home medications - Topamax History of Present Illness Consult date: 11/29/17 Requesting physician: Pan May Reason for consult: other (pt intubated s/p respiratory failure d/t OD) Chief complaint: respiratory failure History of present illness: Pt presented to ED and was emergently intubated for obtundation. Pt reportedly ingested 1400mg of Lamictal because she was out of her own benzodiazepine prescription. Unknown whether intentional or not. QTC of 500 was treated with magnesium at the recommendation of poison control. Imaging was grossly unremarkable. Labs demonstrated hypokalemia and hypocalcemia which were treated in the ED. Pt remained hemodynamically stable throughout her stay. Respiratory began planning for extubation on the morning of 11/29/17 and found NIF -20.5 and RSBI of 33 with cuff leak present. She was extubated and continues to maintain saturation. Her only present complaint is ankle pain associated with a fracture under management by a doctor at [facility]. She has no other complaints. Past Med Surg Social Fam HX - Past Medical History Medical history: fibromyalgia, migraine, seizures, thyroid disease, syncope Additional medical history: POTS, Psychiatric history: depression - Past Surgical History Surgical History: non-contributory Additional surgical history: right wrist - Social History Smoking Status: Former smoker Smokeless Tobacco Status: Yes (vape) Alcohol use: none Drug use: none Medications and Allergies Acetaminophen/Butalbital/Caffe [Fioricet] 1 each PO Q4HR PRN 10/14/17 [History] Amitriptyline [Elavil] 25 mg PO HS 10/14/17 [History] Baclofen [Lioresal] 10 mg PO TID 10/14/17 [History] Citalopram [CeleXA] 40 mg PO DAILY 10/14/17 [History] Clopidogrel [Plavix] 75 mg PO DAILY 10/14/17 [History] Cyclobenzaprine [Flexeril] 10 mg PO TID PRN 10/14/17 [History] Desvenlafaxine Succinate [Desvenlafaxine Succinate ER] 50 mg PO DAILY 10/14/17 [ History] Folic Acid 1 mg PO DAILY 10/14/17 [History] HYDROcodone/Acet 7.5/325 mg [Rheems 7.5-325 mg] 1 tab PO TID 10/14/17 [History] Quetiapine Fumarate [Seroquel] 25 - 50 mg PO HS 10/14/17 [History] Quetiapine Fumarate [Seroquel] 25 mg PO AD PRN 10/14/17 [History] Topiramate [Topamax] 100 mg PO BID 10/14/17 [History] hydroCHLOROthiazide [Hydrochlorothiazide] 25 mg PO DAILY 10/14/17 [History] Levothyroxine [Synthroid] 75 mcg PO DAILY@0630 30 Days #30 tablet 10/20/17 [Rx] 3 Allergy/AdvReac Type Severity Reaction Status Date / Time sertraline [From Zoloft] Allergy Hives Verified 11/29/17 10:24 Tetracyclines Allergy Hives Verified 11/29/17 10:24 All Systems: The remainder of the systems were reviewed and are negative - Constitutional Constitutional: no chills, no fever(s) - EENT Eyes: as per HPI - Cardiovascular Cardiovascular: no chest pain, no dyspnea - Respiratory Respiratory: cough (Chronic), no dyspnea - Gastrointestinal Gastrointestinal: no abdominal pain - Integumentary Integumentary: no erythema, no rash - Neurological Neurological: as per HPI - Psychiatric Psychiatric: other (s/p ingestion - unsure whether intentional or not) Physical Examination Vital Signs: Vital Signs, Last 4 Hours Temp Pulse Resp BP Pulse Ox 11/29/17 08:00 64 14 108/74 99 11/29/17 07:59 97.2 F L 11/29/17 07:00 61 14 120/76 11/29/17 06:00 64 14 108/70 100 11/29/17 05:24 14 100 11/29/17 05:00 97.7 F 69 14 131/69 100 General appearance: no acute distress Eyes: nonicteric ENT: oropharynx dry Effort: normal Inspection: normal Auscultation: bilateral: clear Cardiovascular: regular rate and rhythm Gastrointestinal: normoactive bowel sounds Integumentary: normal Extremities: no cyanosis Musculoskeletal: no deformities normal mental status (A&O x 3 - self, place, time), pupils equal and round, CN II-XII normal, motor strength normal and symmetric other (Pt appears slightly agitated, will answer questions and follow commands with some prompting, thought content not consistent with events, speech pattern is halting and she answers in short bursts, she is attentive. Judgement and insight appear impaired as she thinks she was prescribed the lamictal and is under the care of a physician for this prescription, she also does not think she did anything inappropriate.) Ventilator Settings Ventilator Settings: Ventilator Settings, Last 8 Hours Ventilator Tidal Volume 400 Setting Ventilator Tidal Volume 400 Setting Ventilator Tidal Volume 400 Setting Ventilator Tidal Volume 400 Setting Ventilator Tidal Volume 400 Setting Ventilator Tidal Volume 400 Setting Ventilator Tidal Volume 400 Setting Ventilator Tidal Volume 400 Setting Ventilator Tidal Volume 400 Setting Ventilator Tidal Volume 400 Setting Ventilator Tidal Volume 400 Setting Ventilator Respiratory Rate 14 Setting Ventilator Respiratory Rate 14 Setting Ventilator Respiratory Rate 14 Setting Ventilator Respiratory Rate 14 Setting Ventilator Respiratory Rate 14 Setting Ventilator Respiratory Rate 14 Setting Ventilator Respiratory Rate 14 Setting Ventilator Respiratory Rate 14 Setting Ventilator Respiratory Rate 14 Setting Ventilator Respiratory Rate 14 Setting Ventilator Respiratory Rate 14 Setting Actual Respiratory Rate 14 Actual Respiratory Rate 14 Actual Respiratory Rate 14 Actual Respiratory Rate 14 Actual Respiratory Rate 14 Actual Respiratory Rate 14 Positive End Expiratory 5 Pressure Positive End Expiratory 5 Pressure Positive End Expiratory 5 Pressure Positive End Expiratory 5 Pressure Positive End Expiratory 5 Pressure Positive End Expiratory 5 Pressure Positive End Expiratory 5 Pressure Positive End Expiratory 5 Pressure Positive End Expiratory 5 Pressure Positive End Expiratory 5 Pressure Positive End Expiratory 5 Pressure Peak Inspiratory Airway 22 Pressure Peak Inspiratory Airway 21 Pressure Peak Inspiratory Airway 20 Pressure Peak Inspiratory Airway 20 Pressure Peak Inspiratory Airway 18 Pressure Results - Laboratory Findings CBC and BMP: 11/29/17 01:37 11/29/17 05:11 ABG ABG pH 7.43 pH Units (7.32-7.45) 11/29/17 01:24 ABG pCO2 45 mmHg (35-45) 11/29/17 01:24 ABG pO2 72 mmHg (85-104) L 11/29/17 01:24 ABG O2 Saturation 95 % (95-98) 11/29/17 01:24 PT/INR, D-dimer PT 11.5 Seconds (9.4-12.1) 11/28/17 20:00 Abnormal lab findings: Abnormal lab results WBC 13.9 K/mcL (4.3-11.1) H D 11/29/17 01:37 RBC 2.84 M/mcL (3.82-4.97) L 11/29/17 01:37 Hgb 9.6 g/dL (11.5-15.4) L 11/29/17 01:37 Hct 28.2 % (35.3-44.9) L 11/29/17 01:37 MCH 33.8 pg (28.0-33.3) H 11/29/17 01:37 Neutrophils # 11.2 K/mcL (1.6-8.9) H 11/29/17 01:37 APTT 23.8 Seconds (26.0-36.0) L 11/28/17 20:00 ABG pO2 72 mmHg (85-104) L 11/29/17 01:24 ABG HCO3 30 mEq/L (21-27) H 11/29/17 01:24 ABG Total CO2 31 mEq/L (20-26) H 11/29/17 01:24 ABG Base Excess 5 mEq/L (-2 to 3) H 11/29/17 01:24 Sodium 135 mEq/L (136-145) L 11/29/17 05:11 Potassium 2.6 mEq/L (3.5-5.1) L 11/29/17 05:11 Chloride 96 mEq/L (98-107) L 11/29/17 05:11 Carbon Dioxide 31 mEq/L (23-29) H 11/29/17 05:11 Creatinine 1.46 mg/dL (0.60-1.20) H 11/29/17 05:11 Est GFR ( Amer) 44 (> 60) L 11/29/17 05:11 Est GFR (Non-Af Amer) 37 (> 60) L 11/29/17 05:11 POC Glucose 169 mg/dL (70-99) H 11/28/17 19:12 Venous Ioniz Calcium 0.93 mmol/L (1.15-1.35) L 11/28/17 20:18 Phosphorus 2.0 mg/dL (2.7-4.5) L 11/29/17 05:11 Alkaline Phosphatase 142 Units/L (34-104) H 11/29/17 01:37 TSH 41.608 mcIU/mL (0.340-5.600) H 11/28/17 20:00 Ur Specific Williams 1.007 (1.010-1.025) L 11/28/17 19:43 Ur Leukocyte Esterase Moderate (Negative) H 11/28/17 19:43 Urine Microscopic WBC 5-15 per hpf (0-3) H 11/28/17 19:43 Ur Squamous Epith Cells Moderate per lpf (None-Few) H 11/28/17 19:43 Ur Culture Indicated? YES (NO) A 11/28/17 19:43 Salicylates < 2.5 mg/dL (15.0-30.0) L 11/28/17 20:00 Acetaminophen < 10 mcg/mL (10-20) L 11/28/17 20:00 Ur Barbiturates Screen Positive ng/mL (Xpkmei=399) H 11/28/17 19:43 U Marijuana (THC) Screen Positive ng/mL (Cutoff = 50) H 11/28/17 19:43 - Clinical Findings Intake & Output: Intake & Output 11/28/17 11/29/17 11/29/17 23:59 07:59 15:59 Intake Total 195.1 / 195.1 Output Total 1475 / 1475 Balance -1279.9 / -1279.9 Consult Discharge Plan - Plan Referrals: William De Leon DO [Primary Care Provider] - <Rosendo Hayward - Last Filed: 11/29/17 12:09> Date of Encounter: 11/29/17 All Systems: The remainder of the systems were reviewed and are negative Physical Examination Vital Signs: Vital Signs, Last 4 Hours Pulse Resp BP Pulse Ox 11/29/17 12:00 76 19 99/61 100 11/29/17 11:00 73 19 108/58 100 11/29/17 10:52 19 110/81 100 11/29/17 10:00 72 19 125/69 99 11/29/17 09:00 71 18 110/81 100 Ventilator Settings Ventilator Settings: Ventilator Settings, Last 8 Hours Ventilator Tidal Volume 400 Setting Ventilator Tidal Volume 400 Setting Ventilator Tidal Volume 400 Setting Ventilator Tidal Volume 400 Setting Ventilator Tidal Volume 400 Setting Ventilator Tidal Volume 400 Setting Ventilator Tidal Volume 400 Setting Ventilator Respiratory Rate 14 Setting Ventilator Respiratory Rate 14 Setting Ventilator Respiratory Rate 14 Setting Ventilator Respiratory Rate 14 Setting Ventilator Respiratory Rate 14 Setting Ventilator Respiratory Rate 14 Setting Ventilator Respiratory Rate 14 Setting Actual Respiratory Rate 18 Actual Respiratory Rate 14 Actual Respiratory Rate 14 Actual Respiratory Rate 14 Actual Respiratory Rate 14 Actual Respiratory Rate 14 Positive End Expiratory 5 Pressure Positive End Expiratory 5 Pressure Positive End Expiratory 5 Pressure Positive End Expiratory 5 Pressure Positive End Expiratory 5 Pressure Positive End Expiratory 5 Pressure Positive End Expiratory 5 Pressure Peak Inspiratory Airway 31 Pressure Peak Inspiratory Airway 22 Pressure Peak Inspiratory Airway 21 Pressure Peak Inspiratory Airway 21 Pressure Peak Inspiratory Airway 20 Pressure Peak Inspiratory Airway 20 Pressure Results - Laboratory Findings CBC and BMP: 11/29/17 01:37 11/29/17 05:11 ABG ABG pH 7.43 pH Units (7.32-7.45) 11/29/17 01:24 ABG pCO2 45 mmHg (35-45) 11/29/17 01:24 ABG pO2 72 mmHg (85-104) L 11/29/17 01:24 ABG O2 Saturation 95 % (95-98) 11/29/17 01:24 PT/INR, D-dimer PT 11.5 Seconds (9.4-12.1) 11/28/17 20:00 Abnormal lab findings: Abnormal lab results WBC 13.9 K/mcL (4.3-11.1) H D 11/29/17 01:37 RBC 2.84 M/mcL (3.82-4.97) L 11/29/17 01:37 Hgb 9.6 g/dL (11.5-15.4) L 11/29/17 01:37 Hct 28.2 % (35.3-44.9) L 11/29/17 01:37 MCH 33.8 pg (28.0-33.3) H 11/29/17 01:37 Neutrophils # 11.2 K/mcL (1.6-8.9) H 11/29/17 01:37 APTT 23.8 Seconds (26.0-36.0) L 11/28/17 20:00 ABG pO2 72 mmHg (85-104) L 11/29/17 01:24 ABG HCO3 30 mEq/L (21-27) H 11/29/17 01:24 ABG Total CO2 31 mEq/L (20-26) H 11/29/17 01:24 ABG Base Excess 5 mEq/L (-2 to 3) H 11/29/17 01:24 Sodium 135 mEq/L (136-145) L 11/29/17 05:11 Potassium 2.6 mEq/L (3.5-5.1) L 11/29/17 05:11 Chloride 96 mEq/L (98-107) L 11/29/17 05:11 Carbon Dioxide 31 mEq/L (23-29) H 11/29/17 05:11 Creatinine 1.46 mg/dL (0.60-1.20) H 11/29/17 05:11 Est GFR ( Amer) 44 (> 60) L 11/29/17 05:11 Est GFR (Non-Af Amer) 37 (> 60) L 11/29/17 05:11 POC Glucose 124 mg/dL (70-99) H 11/29/17 01:07 Venous Ioniz Calcium 0.93 mmol/L (1.15-1.35) L 11/28/17 20:18 Phosphorus 2.0 mg/dL (2.7-4.5) L 11/29/17 05:11 Alkaline Phosphatase 142 Units/L (34-104) H 11/29/17 01:37 TSH 41.608 mcIU/mL (0.340-5.600) H 11/28/17 20:00 Ur Specific Williams 1.007 (1.010-1.025) L 11/28/17 19:43 Ur Leukocyte Esterase Moderate (Negative) H 11/28/17 19:43 Urine Microscopic WBC 5-15 per hpf (0-3) H 11/28/17 19:43 Ur Squamous Epith Cells Moderate per lpf (None-Few) H 11/28/17 19:43 Ur Culture Indicated? YES (NO) A 11/28/17 19:43 Salicylates < 2.5 mg/dL (15.0-30.0) L 11/28/17 20:00 Acetaminophen < 10 mcg/mL (10-20) L 11/28/17 20:00 Ur Barbiturates Screen Positive ng/mL (Wypxlv=929) H 11/28/17 19:43 U Marijuana (THC) Screen Positive ng/mL (Cutoff = 50) H 11/28/17 19:43 - Clinical Findings Intake & Output: Intake & Output 11/28/17 11/29/17 11/29/17 23:59 07:59 15:59 Intake Total 195.1 / 195.1 Output Total 1475 / 1475 Balance -1279.9 / -1279.9 - Attending Attestation I examined this patient and my medical decision-making was reviewed with the Resident Physician. I agree with the documented findings, disposition and treatment plan as described except to the extent set forth below. Patient seen and examined. Labs, radiology, chart personally reviewed. Agree with resident's history and physical, assessment, plan with following comments: RADIOLOGY MANAGER: Patient follows commands, patient is very anxious and she would need a psych consult and to resume her psych medication. Pulmonary: Acceptable oxygenation and ventilation. Patient tolerated spontaneous breathing trial and she was extubated successfully. I believe dyspnea is mostly an anxiety related. We may need Precedex. We will empirically treat for aspiration. Pneumonia. Cardiovascular: stable GI: Nutrition per dietary and GI prophylaxis per routine Heme: DVT prophylaxis per routine ID: Continue antibiotics and plan to de-escalation Renal; urine out put and renal funtion reviewed Endorcine: blood glucose is monitored Lines: all lines checked and no evidence of infections Skin: skin care to prevent pressure ulcers per nursing routine care We will continue monitoring the patient in the ICU for next 24 hours and if remains stable then she can be transferred out. Thank you for the consultation.
[2017-11-29] MEDS ORDERED: Baclofen 10 MG TABLET GTUBE SCH (09:00)
[2017-11-29] MEDS: Ampicillin/Sulbactam 1,500 MG in 0.9 % Sodium Chloride Mini Bag 100 ML IVPB SCH ×3 (12:39→20:24)
[2017-11-29] MEDS: hydroCHLOROthiazide 25 MG TABLET PO SCH (12:39)
[2017-11-29] MEDS: Topiramate 100 MG TABLET PO SCH ×2 (14:25→20:24)
[2017-11-29] MEDS: Haloperidol Lactate 5 MG/ML VIAL IVP PRN ×2 (14:26→20:24)
--- NOTE | 2017-11-29 18:29 | Internal Med Progress Note ---
Hospitalist Progress Note - Encounter Date of Encounter: 11/29/17 Time of Encounter: 11:00 - Subjective Interval History: Patient extubated this morning and doing well Monitoring in the ICU for 24 hours for respiratory status and or QT prolongation due to overdose - Exam Vitals: Temp Pulse Resp BP Pulse Ox 97.2 F L 77 19 99/68 98 11/29/17 14:43 11/29/17 17:30 11/29/17 17:30 11/29/17 17:30 11/29/17 17:30 Exam: Gen.: Nonacute distress, alert and oriented 3 ENT: Mucosal membranes moist Respiratory: Lungs are clear to auscultation bilaterally without any wheezing rhonchi or rales Cardiovascular: Normal S1 and S2 regular rate rhythm no murmurs rubs or gallops Abdomen: Soft, nontender and nondistended with positive bowel sounds Extremities: No lower extremity edema Skin: Normal color - Assessment and Plan (1) Drug overdose Current Visit: Yes Status: Acute Assessment and Plan: 62-year-old female was found unconscious by her daughter in law and taken 14 pills of 100 mg lamotrigine. Patient presented unconscious, and was vomiting. Patient was intubated but later extubated this morning and in no acute respiratory distress Patient's QT was noted to be 500 otherwise EKG was sinus rhythm with no ST-T wave changes. Will continue to monitor QT interval. (2) Hypokalemia Current Visit: Yes Status: Acute Assessment and Plan: Patient presented with a potassium of 2.3 and has improved to 2.8 this morning Continue to monitor with electrolyte protocol (3) Elevated TSH Current Visit: Yes Status: Acute Assessment and Plan: Patient has a history of hypothyroidism TSH is 41 Patient's home dose of 75 g of levothyroxine increase to 112 mg of thyroxine. Follow-up with PCP for further management (4) QT prolongation Current Visit: Yes Status: Acute Assessment and Plan: Secondary to Lamictal overdose Hold home medications Plan as above. - Time Spent with Patient Total time spent is greater than 50% in coordination of care (as documented) at patient's floor/unit and/or counseling patient: Internal Medicine: Result - Labs CBC & Chem 7: 11/29/17 01:37 11/29/17 05:11 Labs: Short CBC 11/29/17 Range/Units 01:37 WBC 13.9 H D (4.3-11.1) K/mcL Hgb 9.6 L (11.5-15.4) g/dL Hct 28.2 L (35.3-44.9) % Plt Count 260 (140-400) K/mcL Neutrophils # 11.2 H (1.6-8.9) K/mcL BMP 11/29/17 11/29/17 01:37 05:11 Sodium 134 L 135 L Potassium 2.8 L 2.6 L Chloride 96 L 96 L Carbon Dioxide 30 H 31 H BUN 13 12 Creatinine 1.48 H 1.46 H Glucose 122 H 105 Calcium 8.6 8.7 Liver Function 11/29/17 Range/Units 01:37 Total Bilirubin 0.4 (0.3-1.0) mg/dL Direct Bilirubin 0.0 (0.0-0.2) mg/dL AST 14 (13-39) Units/L ALT 8 (7-52) Units/L Alkaline Phosphatase 142 H (34-104) Units/L Albumin 3.8 (3.5-5.7) g/dL - ABG Interpretation ABG results: ABG ABG pH 7.43 pH Units (7.32-7.45) 11/29/17 01:24 ABG pCO2 45 mmHg (35-45) 11/29/17 01:24 ABG pO2 72 mmHg (85-104) L 11/29/17 01:24 ABG O2 Saturation 95 % (95-98) 11/29/17 01:24 PT/INR, D-dimer PT 11.5 Seconds (9.4-12.1) 11/28/17 20:00 - Impressions Impressions Chest X-Ray 11/29/17 00:43 IMPRESSION: 1. Endotracheal tube with the tip in the right mainstem bronchus. Recommend retraction by approximately 3 cm. 2. An enteric tube is seen coursing below the diaphragm. 3. No convincing acute cardiopulmonary abnormality. These results were sent to the [facility] on 11/29/2017 at 2:06 am to be communicated to the referring/covering health care provider/office. D/ / Jareth Jean MD / Jareth Jean MD Interpreting Provider: Jareth Jean MD Chest X-Ray 11/29/17 05:00 IMPRESSION: Stable chest. D/ / Timothy Nye MD / Timothy Nye MD Interpreting Provider: Timothy Nye MD - VTE Documentation of Mechanical Device: Intermittent pneumatic compression device Consult Discharge Plan - Plan Referrals: William De Leon DO [Primary Care Provider] - (1) Drug overdose Qualifiers: Encounter type: initial encounter Injury intent: undetermined intent Qualified Code(s): T50.904A - Poisoning by unspecified drugs, medicaments and biological substances, undetermined, initial encounter
[2017-11-30] MEDS: Potassium Chloride Elixir 20 MEQ/15 ML UDC PO PRN ×2 (00:45→05:38)
[2017-11-30 02:02] LABS: Basophils # 0.1 K/mcL (0.0-0.2); Basophils % 0.8 %; Eosinophils # 0.1 K/mcL (0.0-0.6); Eosinophils % 1.6 %; Hemoglobin 9.9 g/dL (11.5-15.4); Immature Granulocytes % 0.3 % (0-4); Lymphocytes # 3.4 K/mcL (0.6-4.6); Lymphocytes % 38.3 %; Mean Corpuscular HGB Conc 34.1 g/dL (31.6-35.5); Mean Corpuscular Hemoglobin 34.4 pg (28.0-33.3); Mean Corpuscular Volume 100.7 fL (83.0-100.0); Mean Platelet Volume 10.2 fL (9.4-12.4); Monocytes # 0.6 K/mcL (0.0-1.3); Monocytes % 7.1 %; Neutrophils # 4.6 K/mcL (1.6-8.9); Platelet Count 266 K/mcL (140-400); Red Blood Count 2.88 M/mcL (3.82-4.97); Red Cell Distribution Width 14.1 % (11.5-14.5); Segmented Neutrophils % 51.9 %
[2017-11-30 02:05] LABS: Albumin 3.6 g/dL (3.5-5.7); Albumin/Globulin Ratio 1.3 (1.1-2.2); Bilirubin,Total 0.4 mg/dL (0.3-1.0); Calcium 8.5 mg/dL (8.6-10.3); Globulin 2.8 g/dL (2.4-3.5); Total Protein 6.4 g/dL (6.4-8.9)
[2017-11-30 02:08] LABS: INR 0.9; Prothrombin Time 10.6 Seconds (9.4-12.1)
[2017-11-30 02:10] LABS: Activated Partial Thrombo Time 25.1 Seconds (26.0-36.0)
[2017-11-30] MEDS: Artificial Tears SOLN 15 ML BOTTLE BOTH EYES SCH ×3 (03:20→12:12)
[2017-11-30] MEDS: Ampicillin/Sulbactam 1,500 MG in 0.9 % Sodium Chloride Mini Bag 100 ML IVPB SCH ×2 (03:20→08:46)
[2017-11-30] MEDS ORDERED: Famotidine 20 MG/2 ML VIAL IVP SCH (06:00)
--- NOTE | 2017-11-30 07:05 | Pulmonology Progress Note ---
<AdairForrest W - Last Filed: 11/30/17 10:25> Date of Encounter: 11/30/17 Objective PUL Vital signs: Last Vital Signs Temp 97.9 F 11/30/17 04:33 Pulse 72 11/30/17 06:00 Resp 16 11/30/17 06:00 BP 112/66 11/30/17 06:00 Pulse Ox 100 11/30/17 06:00 Results - Laboratory Findings CBC and BMP: 11/30/17 01:33 11/30/17 01:33 ABG ABG pH 7.43 pH Units (7.32-7.45) 11/29/17 01:24 ABG pCO2 45 mmHg (35-45) 11/29/17 01:24 ABG pO2 72 mmHg (85-104) L 11/29/17 01:24 ABG O2 Saturation 95 % (95-98) 11/29/17 01:24 PT/INR, D-dimer PT 10.6 Seconds (9.4-12.1) 11/30/17 01:33 Abnormal lab findings: Abnormal lab results RBC 2.88 M/mcL (3.82-4.97) L 11/30/17 01:33 Hgb 9.9 g/dL (11.5-15.4) L 11/30/17 01:33 Hct 29.0 % (35.3-44.9) L 11/30/17 01:33 MCV 100.7 fL (83.0-100.0) H 11/30/17 01:33 MCH 34.4 pg (28.0-33.3) H 11/30/17 01:33 APTT 25.1 Seconds (26.0-36.0) L 11/30/17 01:33 ABG pO2 72 mmHg (85-104) L 11/29/17 01:24 ABG HCO3 30 mEq/L (21-27) H 11/29/17 01:24 ABG Total CO2 31 mEq/L (20-26) H 11/29/17 01:24 ABG Base Excess 5 mEq/L (-2 to 3) H 11/29/17 01:24 Potassium 3.0 mEq/L (3.5-5.1) L 11/30/17 01:33 Carbon Dioxide 31 mEq/L (23-29) H 11/30/17 01:33 Creatinine 1.35 mg/dL (0.60-1.20) H 11/30/17 01:33 Est GFR ( Amer) 48 (> 60) L 11/30/17 01:33 Est GFR (Non-Af Amer) 40 (> 60) L 11/30/17 01:33 Glucose 106 mg/dL (70-105) H 11/30/17 01:33 POC Glucose 107 mg/dL (70-99) H 11/29/17 23:59 Calcium 8.5 mg/dL (8.6-10.3) L 11/30/17 01:33 Venous Ioniz Calcium 0.93 mmol/L (1.15-1.35) L 11/28/17 20:18 Phosphorus 2.0 mg/dL (2.7-4.5) L 11/29/17 05:11 Alkaline Phosphatase 141 Units/L (34-104) H 11/30/17 01:33 TSH 41.608 mcIU/mL (0.340-5.600) H 11/28/17 20:00 Free T4 0.57 ng/dl (0.70-2.00) L 11/30/17 01:33 Ur Specific Watson 1.007 (1.010-1.025) L 11/28/17 19:43 Ur Leukocyte Esterase Moderate (Negative) H 11/28/17 19:43 Urine Microscopic WBC 5-15 per hpf (0-3) H 11/28/17 19:43 Ur Squamous Epith Cells Moderate per lpf (None-Few) H 11/28/17 19:43 Ur Culture Indicated? YES (NO) A 11/28/17 19:43 Salicylates < 2.5 mg/dL (15.0-30.0) L 11/28/17 20:00 Acetaminophen < 10 mcg/mL (10-20) L 11/28/17 20:00 Ur Barbiturates Screen Positive ng/mL (Ndxapo=169) H 11/28/17 19:43 U Marijuana (THC) Screen Positive ng/mL (Cutoff = 50) H 11/28/17 19:43 - Clinical Findings Intake & Output: Intake & Output 11/29/17 11/29/17 11/30/17 15:59 23:59 07:59 Intake Total 224 / 224 200 / 200 Output Total 350 / 350 300 / 300 550 / 550 Balance -126 / -126 -100 / -100 -550 / -550 Weight 74.5 kg Consult Discharge Plan - Plan Referrals: William De Leon DO [Primary Care Provider] - - Attending Attestation I examined this patient and my medical decision-making was reviewed with the Resident Physician. I agree with the documented findings, disposition and treatment plan as described except to the extent set forth below. We independently had [id number] contact with the patient Patient seen and examined at bedside Labs, radiology, chart personally reviewed. Management was reviewed during multidisciplinary critical care rounds. SENIOR WE[employer] SERVICES DEVELOPER: Awake alert. Overdose ?unintentional Psych consulted. Cont precautions. Pulm: Stable on room air Cards: BP stable. QTC has normalized. ID: ?UTI on ABx plan to deescalate Dispo: Stable [facility] CODE: Full. <Petrona Salvador - Last Filed: 11/30/17 12:25> Date of Encounter: 11/30/17 Time of Encounter: 07:05 Assessment and Plan (1) Altered mental status Current Visit: Yes Status: Acute Pt presented to the ED obtunded and was intubated to inability to protect airway and maintain saturation. She was extubated 12/09/17 and is mentating appropriately, A&Ox3 - self, place, time. There is either some confusion as to the events that led to her admission or purposeful falsification. Psych evaluated her today and will make their recommendation. Qualifiers: Qualified Code(s): R41.82 - Altered mental status, unspecified (2) Drug overdose Current Visit: Yes Status: Acute Pt reportedly took 1400mg Lamictal either because she was confused or because she did not have any of her own medication. She was found to have QTC of 500 and was given Mg in the ED. EKG was repeated and QTC was found to be [address] Evans from Psych consulted and saw this patient this morning. Qualifiers: Qualified Code(s): T50.904A - Poisoning by unspecified drugs, medicaments and biological substances, undetermined, initial encounter (3) Elevated TSH Current Visit: Yes Status: Acute Pt had TSH of 41.608 and Free T4 <0.25ng/dl on 10/14/17. Free T4 .57 11/30/17. Adjust synthroid dose and f/u with PCP. (4) Hypocalcemia Current Visit: Yes Status: Acute Ca2+ 8.9 this morning. (5) Hypokalemia Current Visit: Yes Status: Acute Potassium 3.8 this morning. Continue to monitor. (6) Positive urine drug screen Current Visit: Yes Status: Acute UDS positive for barbiturates and THC. Pt has a hx of abuse. Continue to monitor. (7) QT prolongation Current Visit: Yes Status: Acute QT was elevated in ED on presentation, QT on EKG at 1144 on 11/30/17 was 406. (8) Aspiration pneumonia Current Visit: Yes Status: Suspected Due to OD and pt being found down with emesis around her mouth as well as continued emesis during transport to the hospital, there is concern for potential development of aspiration PNA. Pt is currently being covered with Unasyn 1500mg Q6. She is normothermic, with clear breath sounds bilaterally, without difficulty breathing. There is some opacification on 11/29/17 0308 CXR in the area of the right hilum. Continue coverage with unasyn and monitor CXR. Qualifiers: Qualified Code(s): J69.0 - Pneumonitis due to inhalation of food and vomit (9) CKD (chronic kidney disease) Current Visit: No Status: Acute Cr at admission was 1.63 which is trending down to her baseline. Her average creatinine is between 1.29-1.95 based upon labs dating back to 2013. Continue to monitor, renally dose medications, and gentle hydration as necessary. Qualifiers: Qualified Code(s): N18.3 - Chronic kidney disease, stage 3 (moderate) (10) DVT prophylaxis Current Visit: No Status: Acute Heparin 5k units Q8 (11) H/O syncope Current Visit: No Status: Acute Fall prevention, up with assist (12) Polysubstance abuse Current Visit: No Status: Acute Psych in to eval today (13) Syncope Current Visit: No Status: Acute Fall prevention, up with assist Qualifiers: Qualified Code(s): R55 - Syncope and collapse (14) Weakness Current Visit: No Status: Acute Fall prevention, up with assist (15) Seizure Current Visit: No Status: Suspected Topamax restarted from home med list on 11/29/17 Subjective Principal diagnosis: drug ingestion Interval history: Spoke with Dr. Shepherd hospitalist 11/30/17 1214 Pt is a 62 year old female that was found down at home by family on 11/28/17 after ingesting 1400mg Lamictal, a prescription belonging to her daughter in law. She had emesis around her mouth and vomited once more in the ambulance on the way to the hospital. She was emergent intubated in the emergency department and found to have a prolonged QTC of >500 so was transferred to the ICU. She was extubated on 11/29/17 after passing all weaning parameters and was able to appropriately maintain her saturation on room air for the rest of the day. She was somewhat combative with nursing staff during the day on 11/29/17 so 1mg prn Haldol was ordered, but only administered once. There were no acute events overnight. Her urine grew S aureus but cfu were 100-1000. However, she was started on unasyn prophylactically for aspiration pneumonia as well. Objective PUL Vital signs: Last Vital Signs Temp 97.9 F 11/30/17 04:33 Pulse 72 11/30/17 06:00 Resp 16 11/30/17 06:00 BP 112/66 11/30/17 06:00 Pulse Ox 100 11/30/17 06:00 General appearance: no acute distress Eyes: nonicteric ENT: oropharynx moist Auscultation: bilateral: clear Cardiovascular: regular rate and rhythm Gastrointestinal: normoactive bowel sounds Integumentary: normal normal mental status Results - Laboratory Findings CBC and BMP: 11/30/17 01:33 11/30/17 10:35 ABG ABG pH 7.43 pH Units (7.32-7.45) 11/29/17 01:24 ABG pCO2 45 mmHg (35-45) 11/29/17 01:24 ABG pO2 72 mmHg (85-104) L 11/29/17 01:24 ABG O2 Saturation 95 % (95-98) 11/29/17 01:24 PT/INR, D-dimer PT 10.6 Seconds (9.4-12.1) 11/30/17 01:33 Abnormal lab findings: Abnormal lab results RBC 2.88 M/mcL (3.82-4.97) L 11/30/17 01:33 Hgb 9.9 g/dL (11.5-15.4) L 11/30/17 01:33 Hct 29.0 % (35.3-44.9) L 11/30/17 01:33 MCV 100.7 fL (83.0-100.0) H 11/30/17 01:33 MCH 34.4 pg (28.0-33.3) H 11/30/17 01:33 APTT 25.1 Seconds (26.0-36.0) L 11/30/17 01:33 ABG pO2 72 mmHg (85-104) L 11/29/17 01:24 ABG HCO3 30 mEq/L (21-27) H 11/29/17 01:24 ABG Total CO2 31 mEq/L (20-26) H 11/29/17 01:24 ABG Base Excess 5 mEq/L (-2 to 3) H 11/29/17 01:24 Potassium 3.0 mEq/L (3.5-5.1) L 11/30/17 01:33 Carbon Dioxide 31 mEq/L (23-29) H 11/30/17 01:33 Creatinine 1.35 mg/dL (0.60-1.20) H 11/30/17 01:33 Est GFR ( Amer) 48 (> 60) L 11/30/17 01:33 Est GFR (Non-Af Amer) 40 (> 60) L 11/30/17 01:33 Glucose 106 mg/dL (70-105) H 11/30/17 01:33 POC Glucose 107 mg/dL (70-99) H 11/29/17 23:59 Calcium 8.5 mg/dL (8.6-10.3) L 11/30/17 01:33 Venous Ioniz Calcium 0.93 mmol/L (1.15-1.35) L 11/28/17 20:18 Phosphorus 2.0 mg/dL (2.7-4.5) L 11/29/17 05:11 Alkaline Phosphatase 141 Units/L (34-104) H 11/30/17 01:33 TSH 41.608 mcIU/mL (0.340-5.600) H 11/28/17 20:00 Free T4 0.57 ng/dl (0.70-2.00) L 11/30/17 01:33 Ur Specific Watson 1.007 (1.010-1.025) L 11/28/17 19:43 Ur Leukocyte Esterase Moderate (Negative) H 11/28/17 19:43 Urine Microscopic WBC 5-15 per hpf (0-3) H 11/28/17 19:43 Ur Squamous Epith Cells Moderate per lpf (None-Few) H 11/28/17 19:43 Ur Culture Indicated? YES (NO) A 11/28/17 19:43 Salicylates < 2.5 mg/dL (15.0-30.0) L 11/28/17 20:00 Acetaminophen < 10 mcg/mL (10-20) L 11/28/17 20:00 Ur Barbiturates Screen Positive ng/mL (Ptvryv=360) H 11/28/17 19:43 U Marijuana (THC) Screen Positive ng/mL (Cutoff = 50) H 11/28/17 19:43 - Clinical Findings Intake & Output: Intake & Output 11/29/17 11/29/17 11/30/17 15:59 23:59 07:59 Intake Total 224 / 224 200 / 200 Output Total 350 / 350 300 / 300 550 / 550 Balance -126 / -126 -100 / -100 -550 / -550 Weight 74.5 kg - VTE Documentation of Mechanical Device: Intermittent pneumatic compression device
[2017-11-30] MEDS: Docusate Oral Soln 100 MG/10 ML UDC GTUBE SCH (08:48)
[2017-11-30] MEDS: Topiramate 100 MG TABLET PO SCH ×2 (08:48→21:17)
[2017-11-30] MEDS: *HR* Heparin 5,000 UNIT/ML VIAL SQ SCH (08:48)
[2017-11-30] MEDS: hydroCHLOROthiazide 25 MG TABLET PO SCH (08:49)
[2017-11-30] MEDS: Chlorhexidine Rinse 15 ML MOUTHWASH MM SCH (09:12)
[2017-11-30 11:06] LABS: Calcium 8.9 mg/dL (8.6-10.3); Potassium 3.8 mEq/L (3.5-5.1)
[2017-11-30 11:50] LABS: Magnesium 2.2 mg/dL (1.6-2.6)
[2017-11-30] MEDS ORDERED: Baclofen 10 MG TABLET PO ONE ×2 (12:00→13:15)
--- NOTE | 2017-11-30 12:19 | Consult Note ---
Date of Encounter: 11/30/17 Time of Encounter: 12:11 Assessment & Recommendation (1) Altered mental status Current visit: Yes Status: Acute Assessment & Recommendation: Client takes several mental health meds at home. Would verify regimen with family. At this point would not restart Elavil as it is rather anticholinergic and can contribute to confusion. Would choose between Celexa and Desvenlafaxine but not both. Low dose Seroquel is probably fine. Would recommend she follow up with a Psychiatrist for ongoing management. Would also recommend the family use locked pill boxes for all meds in the home and that the family assume responsibility for giving client her medications. Qualifiers: Altered mental status type: unspecified Qualified Code(s): R41.82 - Altered mental status, unspecified History of Present Illness Requesting Physician: Caesar Washington Reason for consult: overdose History of present illness: Ms. Hitchcock is a 62 year old female who was obtunded at home after she ingested a large dose of Lamictal. Client has been consistent in saying her overdose was not intentional. Claims she took medications that were on the counter thinking they had been left out for her. Client lives with son and [id number] and states they typically leave her meds on the counter for her to take. Medication client took is her [id number]'s prescription. Per records family does not believe overdose was intentional either. Client apparently has periods of confusion and memory loss. She is also treated for depression and some neurological conditions. Sees a physician at the [facility] for her neurological conditions and PCP manages the rest. Client was recently fired from her PCP's office "after twenty seven years" for overtaking pain meds. Now she is looking for a new PCP and states she needs to link with [facility] for mental health. Denies SI. Admits to one previous hospitalization nineteen years ago when her . Records indicate PCP was prescribing Celexa, Elavil, Seroquel and Desvenlafaxine. Currently receiving no psych meds in the hospital. CC: Caesar Washington Past Med Surg Social Fam HX - Past Medical History Medical history: fibromyalgia, migraine, seizures, thyroid disease, syncope - Past Psychiatric History Psychiatric history: Reports: depression, previous psychiatric hospitalization Family psychiatric history: Unknown Family History of Suicide: Unknown - Past Surgical History Surgical History: non-contributory - Social History Smoking Status: Former smoker Smokeless Tobacco Status: Yes (vape) Alcohol use: none Drug use: none Medications & Allergies Acetaminophen/Butalbital/Caffe [Fioricet] 1 each PO Q4HR PRN 10/14/17 [History] Amitriptyline [Elavil] 25 mg PO HS 10/14/17 [History] Baclofen [Lioresal] 5 - 10 mg PO TID 10/14/17 [History] Clopidogrel [Plavix] 75 mg PO DAILY 10/14/17 [History] Desvenlafaxine Succinate [Desvenlafaxine Succinate ER] 50 mg PO DAILY 10/14/17 [ History] Folic Acid 1 mg PO DAILY 10/14/17 [History] HYDROcodone/Acet 7.5/325 mg [Ruffin 7.5-325 mg] 1 tab PO TID 10/14/17 [History] Quetiapine Fumarate [Seroquel] 25 - 50 mg PO HS 10/14/17 [History] Quetiapine Fumarate [Seroquel] 25 mg PO AD PRN 10/14/17 [History] Topiramate [Topamax] 100 mg PO QAM 10/14/17 [History] hydroCHLOROthiazide [Hydrochlorothiazide] 25 mg PO DAILY 10/14/17 [History] Levothyroxine [Synthroid] 75 mcg PO DAILY@0630 30 Days #30 tablet 10/20/17 [Rx] Citalopram Hydrobromide [Citalopram HBr] 40 mg PO DAILY 11/29/17 [History] Ondansetron [Zofran] 8 mg PO DAILY PRN 11/29/17 [History] Topiramate [Topamax] 200 mg PO BID 11/29/17 [History] 3 Allergy/AdvReac Type Severity Reaction Status Date / Time sertraline [From Zoloft] Allergy Hives Verified 11/29/17 10:24 Tetracyclines Allergy Hives Verified 11/29/17 10:24 Review of Systems Constitutional: Denies: fever, chills, weakness, weight change Eyes: Denies: eye pain, vision change Ears, Nose, Throat: Denies: ear pain, throat pain, dental pain, hearing loss, congestion Cardiovascular: Denies: chest pain, palpitations, dyspnea on exertion Respiratory: Denies: cough, dyspnea, wheezes Gastrointestinal: Denies: abdominal pain, nausea, vomiting, diarrhea, constipation Genitourinary female: Denies: urgency, dysuria, frequency, abnormal menses, dyspareunia Musculoskeletal: Denies: joint swelling, joint pain Integumentary: Denies: rash, lesions, pruritus Neurological: Denies: headache, weakness, numbness, memory loss Endocrine: Denies: fatigue, heat or cold intolerance Hematologic/Lymphatic: Denies: easy bruising, lymphadenopathy Allergic/Immunologic: Denies: urticaria, itchy eyes Psychiatry Exam - Constitutional Vitals: Temp Pulse Resp BP Pulse Ox 98 F 65 18 98/77 100 11/30/17 11:09 11/30/17 11:00 11/30/17 11:30 11/30/17 11:30 11/30/17 11:30 General appearance: age & developmentally appropriate - Musculoskeletal Gait: other Station: relaxed Strength & Tone: normal for patient - Psychiatric Patient Orientation: Yes Person, Yes Time, Yes Place Level of alertness: Alert Behavior: calm, cooperative Psychomotor activity: Normal Eye Contact: Maintains Eye Contact Mood Description: Euthymic/stable Affect description: congruent with mood, full range Speech Volume: Normal Speech pattern: normal rate, normal rhythm, normal tone, fluent, spontaneous Language & Vocabulary: consistent with education Thought Process: Linear Thought Content: No Suicidal ideation, No Homicidal ideation, No Overt delusions Perceptual Disturbances: No Auditory hallucinations, No Visual hallucinations Attention Span Ability: Capable of Focused Attention Memory Description: Immediate Intact, Recent Impaired, Remote Intact Patient Reliability: Questionable Historian Fund of knowledge: Yes abstraction ability, Yes aware of current events Intelligence Estimate: Average Judgment: Limited Insight: Minimal Results - Labs Labs: Laboratory Last Values WBC 8.9 K/mcL (4.3-11.1) 11/30/17 01:33 RBC 2.88 M/mcL (3.82-4.97) L 11/30/17 01:33 Hgb 9.9 g/dL (11.5-15.4) L 11/30/17 01:33 Hct 29.0 % (35.3-44.9) L 11/30/17 01:33 MCV 100.7 fL (83.0-100.0) H 11/30/17 01:33 MCH 34.4 pg (28.0-33.3) H 11/30/17 01:33 MCHC 34.1 g/dL (31.6-35.5) 11/30/17 01:33 RDW 14.1 % (11.5-14.5) 11/30/17 01:33 Plt Count 266 K/mcL (140-400) 11/30/17 01:33 MPV 10.2 fL (9.4-12.4) 11/30/17 01:33 Immature Gran % 0.3 % (0-4) 11/30/17 01:33 Seg Neutrophils % 51.9 % 11/30/17 01:33 Lymphocytes % 38.3 % 11/30/17 01:33 Monocytes % 7.1 % 11/30/17 01:33 Eosinophils % 1.6 % 11/30/17 01:33 Basophils % 0.8 % 11/30/17 01:33 Neutrophils # 4.6 K/mcL (1.6-8.9) 11/30/17 01:33 Lymphocytes # 3.4 K/mcL (0.6-4.6) 11/30/17 01:33 Monocytes # 0.6 K/mcL (0.0-1.3) 11/30/17 01:33 Eosinophils # 0.1 K/mcL (0.0-0.6) 11/30/17 01:33 Basophils # 0.1 K/mcL (0.0-0.2) 11/30/17 01:33 PT 10.6 Seconds (9.4-12.1) 11/30/17 01:33 INR 0.9 11/30/17 01:33 APTT 25.1 Seconds (26.0-36.0) L 11/30/17 01:33 Sample Site L Radial 11/29/17 01:24 ABG pH 7.43 pH Units (7.32-7.45) 11/29/17 01:24 ABG pCO2 45 mmHg (35-45) 11/29/17 01:24 ABG pO2 72 mmHg (85-104) L 11/29/17 01:24 ABG HCO3 30 mEq/L (21-27) H 11/29/17 01:24 ABG Total CO2 31 mEq/L (20-26) H 11/29/17 01:24 ABG O2 Saturation 95 % (95-98) 11/29/17 01:24 ABG Base Excess 5 mEq/L (-2 to 3) H 11/29/17 01:24 Betito Test Positive 11/28/17 19:53 Respiration Rate 14 11/29/17 01:24 O2 Delivery Device Adult Vent 11/29/17 01:24 Blood Gas Modality ASSIST CONTROL 11/29/17 01:24 Inspired O2 30.0 (1-15=lpm [id number]=%) 11/29/17 01:24 Tidal Volume 400 cc 11/29/17 01:24 PEEP 5 cm H2O 11/29/17 01:24 Sodium 137 mEq/L (136-145) 11/30/17 10:35 Potassium 3.8 mEq/L (3.5-5.1) D 11/30/17 10:35 Chloride 102 mEq/L (98-107) 11/30/17 10:35 Carbon Dioxide 28 mEq/L (23-29) 11/30/17 10:35 BUN 8 mg/dL (8-23) 11/30/17 10:35 Creatinine 1.31 mg/dL (0.60-1.20) H 11/30/17 10:35 Est GFR ( Amer) 50 (> 60) L 11/30/17 10:35 Est GFR (Non-Af Amer) 41 (> 60) L 11/30/17 10:35 BUN/Creatinine Ratio 6 (6-26) 11/30/17 10:35 Glucose 123 mg/dL (70-105) H 11/30/17 10:35 POC Glucose 107 mg/dL (70-99) H 11/29/17 23:59 Calculated Osmolality 284 (280-300) 11/30/17 10:35 Calcium 8.9 mg/dL (8.6-10.3) 11/30/17 10:35 Venous Ioniz Calcium 0.93 mmol/L (1.15-1.35) L 11/28/17 20:18 Phosphorus 2.0 mg/dL (2.7-4.5) L 11/29/17 05:11 Magnesium 2.2 mg/dL (1.6-2.6) 11/30/17 10:35 Total Bilirubin 0.4 mg/dL (0.3-1.0) 11/30/17 01:33 Direct Bilirubin 0.0 mg/dL (0.0-0.2) 11/29/17 01:37 Indirect Bilirubin 0.4 mg/dL (0.0-1.2) 11/29/17 01:37 AST 14 Units/L (13-39) 11/30/17 01:33 ALT 8 Units/L (7-52) 11/30/17 01:33 Alkaline Phosphatase 141 Units/L (34-104) H 11/30/17 01:33 Ammonia 42 mcmol/L (16-53) 11/28/17 20:00 Creatine Kinase 196 Units/L (30-223) 11/29/17 01:37 Troponin I < 0.03 ng/mL (< 0.04) 11/28/17 20:00 Serum Total Protein 6.4 g/dL (6.4-8.9) 11/30/17 01:33 Albumin 3.6 g/dL (3.5-5.7) 11/30/17 01:33 Globulin 2.8 g/dL (2.4-3.5) 11/30/17 01:33 Albumin/Globulin Ratio 1.3 (1.1-2.2) 11/30/17 01:33 TSH 41.608 mcIU/mL (0.340-5.600) H 11/28/17 20:00 Free T4 0.57 ng/dl (0.70-2.00) L 11/30/17 01:33 Urine Color Yellow (Yellow) 11/28/17 19:43 Urine Clarity Clear (Clear) 11/28/17 19:43 Urine pH 6.5 pH Units (5.0-8.0) 11/28/17 19:43 Ur Specific [place] 1.007 (1.010-1.025) L 11/28/17 19:43 Urine Protein Negative mg/dL (Neg-Trace) 11/28/17 19:43 Urine Glucose (UA) Normal mg/dL (Normal) 11/28/17 19:43 Urine Ketones Negative mg/dL (Negative) 11/28/17 19:43 Urine Blood Negative (Negative) 11/28/17 19:43 Urine Nitrite Negative (Negative) 11/28/17 19:43 Urine Bilirubin Negative (Negative) 11/28/17 19:43 Urine Urobilinogen Normal mg/dL (Normal) 11/28/17 19:43 Ur Leukocyte Esterase Moderate (Negative) H 11/28/17 19:43 Urine Microscopic RBC 0-3 per hpf (0-3) 11/28/17 19:43 Urine Microscopic WBC 5-15 per hpf (0-3) H 11/28/17 19:43 Ur Squamous Epith Cells Moderate per lpf (None-Few) H 11/28/17 19:43 Urine Bacteria None Seen per hpf (None-Few) 11/28/17 19:43 Hyaline Casts None Seen per lpf (None-Few) 11/28/17 19:43 Ur Culture Indicated? YES (NO) A 11/28/17 19:43 Salicylates < 2.5 mg/dL (15.0-30.0) L 11/28/17 20:00 Urine Opiates Screen Negative ng/mL (Reurpd=518) 11/28/17 19:43 Acetaminophen < 10 mcg/mL (10-20) L 11/28/17 20:00 Ur Barbiturates Screen Positive ng/mL (Twpgii=344) H 11/28/17 19:43 Ur Phencyclidine Scrn Negative ng/mL (Cutoff=25) 11/28/17 19:43 Ur Amphetamines Screen Negative ng/mL (Eavfga=4579) 11/28/17 19:43 U Benzodiazepines Scrn Negative ng/mL (Unjxxh=494) 11/28/17 19:43 Urine Cocaine Screen Negative ng/mL (Cutoff= 300) 11/28/17 19:43 U Marijuana (THC) Screen Positive ng/mL (Cutoff = 50) H 11/28/17 19:43 Ur Drug Screen Interp See Below 11/28/17 19:43 Ethyl Alcohol < 10 mg/dL (Less than 10) 11/28/17 20:00 Consult Discharge Plan - Plan Referrals: William De Leon DO [Primary Care Provider] -
[2017-11-30] MEDS ORDERED: traMADol 50 MG TABLET PO PRN (15:23)
[2017-11-30] MEDS: Baclofen 10 MG TABLET PO SCH (21:17)
[2017-12-01] MEDS: Baclofen 10 MG TABLET PO SCH ×3 (08:54→21:22)
[2017-12-01] MEDS: Topiramate 100 MG TABLET PO SCH (08:54)
[2017-12-01] MEDS: Folic Acid 1 MG TABLET PO SCH (08:54)
[2017-12-01] MEDS: hydroCHLOROthiazide 25 MG TABLET PO SCH (08:54)
[2017-12-01 11:59] LABS: Calcium 9.1 mg/dL (8.6-10.3); Potassium 3.2 mEq/L (3.5-5.1)
--- NOTE | 2017-12-01 12:35 | Internal Med Progress Note ---
Hospitalist Progress Note - Encounter Date of Encounter: 12/01/17 Time of Encounter: 09:10 - Subjective Interval History: awake and resting in bed. Feeling improved. No longer confused or lethargic. Denies palpitations, chest pain, pressure, syncope or presyncope. Denies sob, cough, horseness. - Exam Vitals: Temp Pulse Resp BP Pulse Ox 98.9 F 84 15 112/76 98 12/01/17 10:41 12/01/17 10:41 12/01/17 10:41 12/01/17 10:41 12/01/17 10:41 Exam: General: awake, alert, appears stated age HEENT:EOM, pupils equal, round, moist mucus membranes Neck: supple, trachea midline Cardiovascular:regular rate and rhythm, normal S1 & S2, no rubs, murmurs or gallops. no lower extremity edema Lungs:Normal breath sounds, no wheezes, or crackles. Normal respiratory effort Neurological: AAOx3, CN grossly intact, no focal deficits Skin:Normal color, no rash, no pallor, no jaundice - Assessment and Plan (1) Hypokalemia Current Visit: Yes Status: Acute Assessment and Plan: Patient presented with a potassium of 2.3 Improving overall K+ 3.2 today -cont to monitor on hctz -replete oral today with 40 meq KCl -cont to monitor (2) Elevated TSH Current Visit: Yes Status: Acute Assessment and Plan: Patient has a history of hypothyroidism TSH 41 and free t4 low Patient's home dose of 75 mcg of levothyroxine was noted to be increased to 112 mcg, though on review of med rec this was not preformed -d/w pharmacy and increased dose today -will require Follow-up with PCP for further management and repeat outpt testing (3) Drug overdose Current Visit: Yes Status: Acute Assessment and Plan: 62-year-old female was found unconscious by her daughter in law and taken 14 pills of 100 mg lamotrigine. Patient presented unconscious, and was vomiting. Patient was intubated but later extubated 11/29 Patient's QT was noted to be 500 otherwise EKG was sinus rhythm with no ST-T wave changes. Will continue to monitor QT interval- ekg tody remains pending -psych has evaluated and rec is for outpt fu see below, this overdose was NOT deemed as a suicide attempt on their eval. (4) QT prolongation Current Visit: Yes Status: Acute Assessment and Plan: Secondary to Lamictal overdose -repeat ekg is pending -cont to monitor electrolytes -pending qtc today, may need to consider holding celexa DVT Prophylaxis: SCDS (previously on heparin sq and stopped in setting of down trending hgb - Time Spent with Patient Total time spent is greater than 50% in coordination of care (as documented) at patient's floor/unit and/or counseling patient: Greater than 35 minutes Plan of Care Discussed with: patient Internal Medicine: Result - Labs CBC & Chem 7: 11/30/17 01:33 12/01/17 11:25 Labs: BMP 12/01/17 11:25 Sodium 134 L Potassium 3.2 L Chloride 97 L Carbon Dioxide 30 H BUN 9 Creatinine 1.24 H Glucose 121 H Calcium 9.1 - ABG Interpretation ABG results: ABG ABG pH 7.43 pH Units (7.32-7.45) 11/29/17 01:24 ABG pCO2 45 mmHg (35-45) 11/29/17 01:24 ABG pO2 72 mmHg (85-104) L 11/29/17 01:24 ABG O2 Saturation 95 % (95-98) 11/29/17 01:24 PT/INR, D-dimer PT 10.6 Seconds (9.4-12.1) 11/30/17 01:33 - VTE Documentation of Mechanical Device: Intermittent pneumatic compression device Consult Discharge Plan - Plan Referrals: William De Leon DO [Primary Care Provider] - (3) Drug overdose Qualifiers: Encounter type: initial encounter Injury intent: undetermined intent Qualified Code(s): T50.904A - Poisoning by unspecified drugs, medicaments and biological substances, undetermined, initial encounter
[2017-12-01] MEDS: Ampicillin/Sulbactam 1,500 MG in 0.9 % Sodium Chloride Mini Bag 100 ML IVPB SCH (17:41)
[2017-12-01] MEDS ORDERED: Topiramate 100 MG TABLET PO SCH (21:00)
[2017-12-02] MEDS: Ampicillin/Sulbactam 1,500 MG in 0.9 % Sodium Chloride Mini Bag 100 ML IVPB SCH ×2 (00:45→06:27)
[2017-12-02 05:50] LABS: Basophils # 0.1 K/mcL (0.0-0.2); Basophils % 0.6 %; Eosinophils # 0.1 K/mcL (0.0-0.6); Eosinophils % 1.5 %; Hematocrit 30.9 % (35.3-44.9); Hemoglobin 10.4 g/dL (11.5-15.4); Immature Granulocytes % 0.4 % (0-4); Lymphocytes # 3.3 K/mcL (0.6-4.6); Lymphocytes % 34.6 %; Mean Corpuscular HGB Conc 33.7 g/dL (31.6-35.5); Mean Corpuscular Hemoglobin 33.9 pg (28.0-33.3); Mean Corpuscular Volume 100.7 fL (83.0-100.0); Mean Platelet Volume 10.1 fL (9.4-12.4); Monocytes # 0.8 K/mcL (0.0-1.3); Monocytes % 8.7 %; Neutrophils # 5.1 K/mcL (1.6-8.9); Platelet Count 283 K/mcL (140-400); Red Blood Count 3.07 M/mcL (3.82-4.97); Segmented Neutrophils % 54.2 %
[2017-12-02 06:13] LABS: Calcium 9.1 mg/dL (8.6-10.3); Potassium 3.2 mEq/L (3.5-5.1)
[2017-12-02] MEDS ORDERED: Topiramate 100 MG TABLET PO SCH (09:00)
[2017-12-02] MEDS: Baclofen 10 MG TABLET PO SCH (09:58)
[2017-12-02] MEDS: Folic Acid 1 MG TABLET PO SCH (09:59)
[2017-12-02] MEDS: hydroCHLOROthiazide 25 MG TABLET PO SCH (09:59)
[2017-12-02 11:01] VITALS: BP 117/67
--- NOTE | 2017-12-02 12:06 | Discharge Summary ---
- NOTES TO OUTPATIENT PROVIDER Notes to Outpatient Provider: Requires follow up at [facility]. Potassium 2.3 on admission. Stable and overall improved on discharge. Requires bmp to check mag and potassium at PCP follow up appt. May require daily repletion on HCTZ pending outpt monitoring/follow up Date of Encounter: 12/02/17 Time of Encounter: 12:04 - Discharge Diagnosis (1) Hypokalemia Priority: Secondary Status: Acute Assessment and Plan: Patient presented with a potassium of 2.3 Improving overall -cont to monitor on hctz as outpt -replete oral today with 40 meq KCl (2) Elevated TSH Priority: Secondary Status: Acute Assessment and Plan: Patient has a history of hypothyroidism TSH 41 and free t4 low Patient's home dose of 75 mcg of levothyroxine was noted to be increased to 112 mcg, though on review of med rec this was not preformed -d/w pharmacy and increased dose 12/01 -will require Follow-up with PCP for further management and repeat outpt testing -rx provided on dc (3) Drug overdose Priority: Primary Status: Acute Assessment and Plan: 62-year-old female was found unconscious by her daughter in law and taken 14 pills of 100 mg lamotrigine. Patient presented unconscious, and was vomiting. Patient was intubated but later extubated 11/29 Patient's QT was noted to be 500 otherwise EKG was sinus rhythm with no ST-T wave changes. serial EKGS for QT monitoring -QTc at dc 421 -psych has evaluated and rec is for outpt fu see below, this overdose was NOT deemed as a suicide attempt on their eval. -of note while in ICU there was a low suspcion for aspiration pna as d/w pulm team 12/02 prior to dc and she was started on zosyn. This med was stopped by that team on transfer to floor. Pt has no signs or symptoms of pna and does not require abx on dc Qualifiers: Encounter type: initial encounter Injury intent: undetermined intent Qualified Code(s): T50.904A - Poisoning by unspecified drugs, medicaments and biological substances, undetermined, initial encounter (4) QT prolongation Priority: Secondary Status: Acute Assessment and Plan: Secondary to Lamictal overdose see above Hospital course: Ms. Hitchcock is a 62 year old female - Time Spent with Patient Total time spent providing and/or coordinating discharge services: Less than 30 minutes - Discharge Medications Prescriptions: Levothyroxine [Synthroid] 112 mcg PO DAILY@0630 #30 tablet Home Medications: Acetaminophen/Butalbital/Caffe [Fioricet] 1 each PO Q4HR PRN 10/14/17 [History] Baclofen [Lioresal] 5 - 10 mg PO TID 10/14/17 [History] Clopidogrel [Plavix] 75 mg PO DAILY 10/14/17 [History] Folic Acid 1 mg PO DAILY 10/14/17 [History] HYDROcodone/Acet 7.5/325 mg [[place] 7.5-325 mg] 1 tab PO TID 10/14/17 [History] Topiramate [Topamax] 100 mg PO QAM 10/14/17 [History] hydroCHLOROthiazide [Hydrochlorothiazide] 25 mg PO DAILY 10/14/17 [History] Citalopram Hydrobromide [Citalopram HBr] 40 mg PO DAILY 11/29/17 [History] Topiramate [Topamax] 200 mg PO HS 12/01/17 [History] Levothyroxine [Synthroid] 112 mcg PO DAILY@0630 #30 tablet 12/02/17 [Rx] Allergies/Adverse Reactions: 3 Allergy/AdvReac Type Severity Reaction Status Date / Time sertraline [From Zoloft] Allergy Hives Verified 11/29/17 10:24 Tetracyclines Allergy Hives Verified 11/29/17 10:24 Date of admission: 11/28/17 23:51 Primary care physician: Woodrow De Leon DO Consults: 11/29/17 06:16 Consult to Critical Care [CONS] Routine Consulting Provider: [facility] Ana Laura Reason for Consult: lamictal overdose, intubated Call Completed: No Discharging clinician: Jaleesa Guy - Constitutional Vitals: Temp Pulse Resp BP Pulse Ox 97.9 F 99 14 117/67 97 12/02/17 10:59 12/02/17 10:59 12/02/17 10:59 12/02/17 10:59 12/02/17 10:59 Exam: General: awake, alert, appears stated age,no apparent distress HEENT:EOM intact, pupils equal, round, moist mucus membranes Cardiovascular:regular rate and rhythm, normal S1 & S2, no rubs, murmurs or gallops. no lower extremity edema Lungs:Normal breath sounds, no wheezes, or crackles. Normal respiratory effort on room air Neurological: AAOx3, CN grossly intact, no focal deficits Skin:Normal color, no rash, no pallor, no jaundice - Patient Status Disposition: Home, Self-Care Condition: Good Functional capacity at discharge: independent ambulation Overall status at discharge: patient is back to baseline - Discharge Instructions Follow Up With: Blane Henry MD [Non-Partnered Physician] - 12/10/17 11:20 am (Please come in at 11:00 for paperwork to be filled out. Thank you) Additional Instructions: Requires follow up for mental health at [facility] - Diet and Activity Activity: resume usual activities as tolerated Diet: advance to your usual diet - VTE Documentation of Mechanical Device: Intermittent pneumatic compression device
--- NOTE | 2017-12-02 21:34 | Electrocardiograph Report ---
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
--- NOTE | 2017-12-02 21:48 | Electrocardiograph Report ---
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
--- NOTE | 2017-12-02 22:15 | Electrocardiograph Report ---
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
--- NOTE | 2017-12-02 23:08 | Electrocardiograph Report ---
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
--- NOTE | 2017-12-05 11:20 | Electrocardiograph Report ---
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
--- NOTE | 2017-12-05 11:20 | Electrocardiograph Report ---
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
== END 2017-12-02 14:07 | disposition home or self-care (01) | DRG 917 ==
LOC: EMEROOARM 19:01 → ICNU 23:51 → SUATTDRO 23:51 → ICNU 11-29 00:58 → 3ANU 11-30 13:42
PROVIDERS: ADMIT Internal Medicine; ATTEND Internal Medicine